=== PATIENT | male | born 1930 | race American Indian/Alaskan Native ===

== ENCOUNTER 2018-09-17 18:54 | Emergency (ER) | payer MEDICARE, OTHER ==
--- NOTE | 2018-09-17 19:23 | Cat Scan Report ---
PROCEDURE: CT HEAD/BRAIN WO CON TECHNIQUE: Computerized tomography of the head was performed without contrast material. HISTORY: neuro deficits <6hrs or sx present upon awakening COMPARISONS: None . FINDINGS: Low-attenuation in the subcortical and deep white matter of the cerebral hemispheres bilaterally most likely represents chronic postischemic demyelination/small vessel disease. However, a small focus of acute white matter ischemia cannot entirely be excluded. There are chronic infarcts in the basal ganglia bilaterally, left thalamus and left external capsule with decreased size of the left cerebral peduncle consistent with atrophy. There is no definite evidence of an acute intracranial process and no evidence of intracranial hemorr rafael or mass effect. Ventricular size is concordant with the degree of atrophy. The visualized portions of the orbits, paranasal and mastoid sinuses are notable for complete opacifi cation of the left frontal sinus and moderate to marked bilateral ethmoid sinus mucosal thickening. The bony structures are unremarkable. IMPRESSION: 1. No definite evidence of an acute intracranial process and no evidence of intracranial hemorrhage o r mass effect. 2. White matter changes that most likely represent chronic postischemic demyelination/small vessel di sease. However, a small focus of acute white matter ischemia cannot entirely be excluded. 3. Chronic infarcts basal ganglia bilaterally, left thalamus and left external capsule with atrophic change of the left cerebral peduncle. If there is a clinical suspicion of acute cerebral ischemia, MRI brain would be helpful. This document is electronically signed by Sandra Parmar MD., September 17 2018 07:21:10 PM ET
[2018-09-17 19:41] LABS: Basophils # (Auto) 0.1 K/mm3 (0.0-0.1); Basophils % (Auto) 0.6 % (0.0-1.8); Eosinophils # (Auto) 0.9 K/mm3 (0.0-0.4); Eosinophils % (Auto) 8.8 % (0.0-4.3); Hematocrit 43.4 % (35.5-45.6); Hemoglobin 14.2 gm/dl (11.8-15.2); Lymphocytes # (Auto) 1.4 K/mm3 (1.2-5.4); Lymphocytes % (Auto) 14.2 % (13.4-35.0); Mean Corpuscular HGB Conc 33 % (32-34); Mean Corpuscular Volume 88 fl (84-94); Monocytes # (Auto) 0.9 K/mm3 (0.0-0.8); Monocytes % (Auto) 8.7 % (0.0-7.3); Platelet Count 282 K/mm3 (140-440); Red Blood Count 4.93 M/mm3 (3.65-5.03); Red Cell Distribution Width 14.3 % (13.2-15.2)
[2018-09-17 19:52] LABS: INR 0.99 (0.87-1.13); Partial Thromboplastin Time 28.1 Sec. (24.2-36.6)
--- NOTE | 2018-09-17 19:58 | Consultation ---
History of Present Illness Consult date: 09/17/18 Reason for Consult: stroke alert Chief complaint: 88 yo male with h/o strokes in the past, most recent [id number] with residual right sided motor deficits and language deficits- today patient was found slumped over not breathing well and EMS was called; patient was less responsive than normal per ; EMS stated O2 sat was in the 80's upon arriving; isn't here for discussion; no blood thinners, unclear what type of strokes he has had, unclear if he had been sleeping prior to finding him, unclear the last few days of how he has been doing. PMH/SH/FH/ROS noted in EHR and reviewed Medications and Allergies Allergies Allergy/AdvReac Type Severity Reaction Status Date / Time No Known Allergies Allergy Verified 09/17/18 18:56 Home Medications Medication Instructions Recorded Confirmed Last Taken Type Unobtainable 09/17/18 09/17/18 Unknown History Physical Examination - Vital Signs Vital Signs: Vital Signs Temp Pulse Resp BP Pulse Ox 99.6 F 96 H 17 141/90 93 09/17/18 19:12 09/17/18 19:12 09/17/18 19:12 09/17/18 19:12 09/17/18 19:12 - Level of Consciousness 1a. Level of Consciousness: alert/keenly responsive - LOC Questions 1b. LOC Questions: answers no questions correctly - LOC Command 1c. LOC Commands: performs no tasks correctly - Best Gaze 2. Best Gaze: partial gaze palsy - Visual 3. Visual: no visual loss - Motor Arm 5a. Motor Arm Left: drift 5b. Motor Arm Right: no gravity effort - Motor Leg 6a. Motor Leg Left: some gravity effort 6b. Motor Leg Right: no gravity effort - Limb Ataxia 7. Limb Ataxia: absent - Sensory 8. Sensory: mild/moderate sensory loss - Best Language 9. Best Language: mute/global aphasia - Dysarthria 10. Dysarthria: mute/anarrthric - Extinction and Inattention 11. Extinction/Inattention: visual/tactile inattention (Patient with O2 sat 87% at this time, he at times seems to have gaze deviation to the left; no clear seizure movements; he eventually came around to talking to the ED doctor- able to tell her his name, age, and follow some commands) Results - Laboratory Findings CBC and BMP: 09/17/18 19:26 Abnormal Lab Findings: Abnormal Labs 09/17/18 09/17/18 19:16 19:26 Sampson % (Auto) 8.7 H Eos % (Auto) 8.8 H Sampson # 0.9 H Eos # 0.9 H POC Glucose 120 H - Diagnostic Findings Additional findings: CT head w/o bleed, evidence of left deep structure old stroke Assessment and Plan [facility] Impression: 1. r/o seizure vs new stroke vs metabolic/toxic/infectious cause of general decompensation 2. h/o strokes affecting right face/body and speech 3. reduced oxygen saturation Recommendations: - not a tPA candidate due to concern for LKN time, and unclear history - likely not an LVO given coming around now and talking to ED doctor- however discussed obtaining CTA H/N if Cr not abnormal; if it is would pursue MRI/MRA H/N w/o computer applications instructor and EEG on inpatient side - defer respiratory w/u to ED doc d/w ED doc in detail Gaby Johnson MD [facility] LKN: 1700 ts called 185 ts connected 1900 NIHSS 1907 door: [id number] date of service 09/17/18 Medical Decision Making: - Extensive number of diagnosis or management options are considered above. - Extensive amount of complex data reviewed. - High risk of complication and/or morbidity or mortality are associated with differential diagnostic considerations above. - There may be uncertain outcome and increased probability of prolonged functional impairment or high probability of severe prolonged functional impairment associated with some of these differential diagnosis. Medical Data Reviewed: 1.Data reviewed include clinical labs, radiology, Medical Tests; 2.Tests results discussed w/performing or interpreting physician; 3.Obtaining/reviewing old medical records; 4.Obtaining case history from another source; 5.Independent review of image, tracing or specimen. Patient was informed the [facility]rology Consult would happen [facility] by [facility] of interactive audio and video telecommunicationsand consented to receiving care in this manner.
[2018-09-17 20:02] LABS: BUN/Creatinine Ratio 11; Blood Urea Nitrogen 19 mg/dL (9-20); Calcium 9.1 mg/dL (8.4-10.2); Hemolysis Index 24
--- NOTE | 2018-09-17 20:13 | XRay Report ---
PROCEDURE: XR CHEST 1V AP TECHNIQUE: Chest radiograph single view. HISTORY: ams COMPARISONS: No priors FINDINGS: Cardiomediastinal silhouette within normal limits. Decreased inspiration. No airspace consolidation or pleural effusions. Pulmonary vasculature is within normal limits. IMPRESSION: Decreased inspiration. No radiographic evidence of acute disease. This document is electronically signed by Dillon Henson MD., September 17 2018 08:11:09 PM ET
[2018-09-17] MEDS ORDERED: NACL 0.9% 500 ML 500 ML IV ONE (20:42)
[2018-09-17 20:46] LABS: Bilirubin,Urine NEG (Negative); Blood,Urine SM (Negative); Color,Urine Yellow (Yellow); Hyaline Casts,Urine 1 /LPF; Mucus,Urine FEW /HPF; Protein,Urine <15 mg/dL mg/dL (Negative); RBC,Urine < 1.0 /HPF (0.0-6.0); Urobilinogen,Urine < 2.0 mg/dL (<2.0); WBC,Urine < 1.0 /HPF (0.0-6.0)
--- NOTE | 2018-09-17 22:12 | Emergency Department Report ---
ED Altered Mental Status HPI - General Chief Complaint: Altered Mental Status Stated Complaint: ALTERED MENTAL/CVA Time Seen by Provider: 09/17/18 19:10 Source: EMS Mode of arrival: Stretcher Limitations: Altered Mental Status, Physical Limitation - History of Present Illness Initial Comments: 88 yo male with history of CVA, hypertension, dementia, CKD, currently in hospice care, presents to ED with altered mental status. states she was in the kitchen, patient was in the other room when she heard the patient screaming out loud. states she ran into the room when the patient was and states that he was breathing heavily, and then his head drooped downward and he became unresponsive. EMS arrived to find patient is very lethargic, minimally responsive. Patient transported to ED. Patient arrived as a stroke alert and was seen by teleneurologist prior to my arrival in the room. Upon my arrival, patient is awake and alert. Patient was able to state his name and his birthday for me, answer questions, and follow commands. states this is the third time that this has happened. Recently moved from [place], [place]. Following the first 2 episodes, patient was transported to their local ER, workups were done and patient was discharged home. - Related Data Previous Rx's Medication Instructions Recorded Last Taken Type levETIRAcetam [Keppra TAB] 250 mg PO BID #60 tablet 09/17/18 Unknown Rx Allergies Allergy/AdvReac Type Severity Reaction Status Date / Time No Known Allergies Allergy Verified 09/17/18 18:56 ED Review of Systems ROS: Stated complaint: ALTERED MENTAL/CVA Other details as noted in HPI ED Past Medical Hx - Past Medical History Hx Hypertension: Yes Hx CVA: Yes - Surgical History Additional Surgical History: unable to assess - Social History Smoking Status: Unknown if ever smoked Substance Use Type: None - Medications Home Medications: Home Medications Medication Instructions Recorded Confirmed Last Taken Type levETIRAcetam [Keppra TAB] 250 mg PO BID #60 tablet 09/17/18 Unknown Rx ED Physical Exam - General Limitations: Altered Mental Status, Physical Limitation - Assessment Assessment Interval: Baseline - Level of Consciousness 1a. Level of Consciousness: alert/keenly responsive - LOC Questions 1b. LOC Questions: answers 1 question correctly - LOC Command 1c. LOC Commands: performs tasks correctly - Best Gaze 2. Best Gaze: normal - Visual 3. Visual: no visual loss - Facial Palsy 4. Facial Palsy: normal symmetrical movement - Motor Arm 5a. Motor Arm Left: no drift 5b. Motor Arm Right: no gravity effort - Motor Leg 6a. Motor Leg Left: some gravity effort 6b. Motor Leg Right: some gravity effort - Limb Ataxia 7. Limb Ataxia: absent - Sensory 8. Sensory: normal - Best Language 9. Best Language: no aphasia - Dysarthria 10. Dysarthria: normal - Extinction and Inattention 11. Extinction/Inattention: no abnormality - Scoring Total Score: 8 Stroke Severity: Moderate Stroke ED Course Vital Signs 09/17/18 09/17/18 09/17/18 19:07 19:12 19:15 Temperature 99.6 F Pulse Rate 98 H 96 H 92 H Respiratory 16 17 14 Rate Blood Pressure 126/86 Blood Pressure 141/90 [Left] O2 Sat by Pulse 93 95 Oximetry 09/17/18 09/17/18 09/17/18 19:30 19:45 20:01 Temperature Pulse Rate 85 87 80 Respiratory 15 15 15 Rate Blood Pressure 119/69 106/76 135/63 Blood Pressure [Left] O2 Sat by Pulse 94 98 99 Oximetry 09/17/18 09/17/18 09/17/18 20:15 20:30 20:45 Temperature Pulse Rate 77 73 71 Respiratory 15 14 14 Rate Blood Pressure 125/72 127/66 128/70 Blood Pressure [Left] O2 Sat by Pulse 99 100 98 Oximetry 09/17/18 09/17/18 09/17/18 21:00 21:15 21:31 Temperature Pulse Rate 71 80 72 Respiratory 14 17 13 Rate Blood Pressure 129/67 127/66 140/71 Blood Pressure [Left] O2 Sat by Pulse 100 Oximetry 09/17/18 09/17/18 09/17/18 21:45 22:01 22:02 Temperature Pulse Rate 69 72 Respiratory 14 14 Rate Blood Pressure 140/73 147/83 Blood Pressure [Left] O2 Sat by Pulse 99 Oximetry 09/17/18 09/17/18 09/17/18 22:15 22:30 22:45 Temperature Pulse Rate 71 Respiratory 14 14 14 Rate Blood Pressure 144/74 141/79 133/76 Blood Pressure [Left] O2 Sat by Pulse Oximetry - Lab Data Result diagrams: 09/17/18 19:26 09/17/18 19:26 Lab Results 09/17/18 09/17/1809/17/19 Range/Units 19:16 19:26 19:26 WBC 10.1 (4.5-11.0) K/mm3 RBC 4.93 (3.65-5.03) M/mm3 Hgb 14.2 (11.8-15.2) gm/dl Hct 43.4 (35.5-45.6) % MCV 88 (84-94) fl MCH 29 (28-32) pg MCHC 33 (32-34) % RDW 14.3 (13.2-15.2) % Plt Count 282 (140-440) K/mm3 Lymph % (Auto) 14.2 (13.4-35.0) % [place] % (Auto) 8.7 H (0.0-7.3) % Eos % (Auto) 8.8 H (0.0-4.3) % Baso % (Auto) 0.6 (0.0-1.8) % Lymph # 1.4 (1.2-5.4) K/mm3 [place] # 0.9 H (0.0-0.8) K/mm3 Eos # 0.9 H (0.0-0.4) K/mm3 Baso # 0.1 (0.0-0.1) K/mm3 Seg Neutrophils % 67.7 (40.0-70.0) % Seg Neutrophils # 6.9 (1.8-7.7) K/mm3 PT 13.7 (12.2-14.9) Sec. INR 0.99 (0.87-1.13) APTT 28.1 (24.2-36.6) Sec. Thrombin Time (15.1-19.6) Sec. Sodium (137-145) mmol/L Potassium (3.6-5.0) mmol/L Chloride (98-107) mmol/L Carbon Dioxide (22-30) mmol/L Anion Gap mmol/L BUN (9-20) mg/dL Creatinine (0.8-1.5) mg/dL Estimated GFR ml/min BUN/Creatinine Ratio % Glucose (75-100) mg/dL POC Glucose 120 H (70-105) Calcium (8.4-10.2) mg/dL Troponin T (0.00-0.029) ng/mL Urine Color (Yellow) Urine Turbidity (Clear) Urine pH (5.0-7.0) Ur Specific [place] (1.003-1.030) Urine Protein (Negative) mg/dL Urine Glucose (UA) (Negative) mg/dL Urine Ketones (Negative) mg/dL Urine Blood (Negative) Urine Nitrite (Negative) Urine Bilirubin (Negative) Urine Urobilinogen (<2.0) mg/dL Ur Leukocyte Esterase (Negative) Urine WBC (Auto) (0.0-6.0) /HPF Urine RBC (Auto) (0.0-6.0) /HPF Hyaline Casts /LPF Urine Mucus /HPF 09/17/18 09/17/18 09/17/18 Range/Units 19:26 19:26 19:52 WBC (4.5-11.0) K/mm3 RBC (3.65-5.03) M/mm3 Hgb (11.8-15.2) gm/dl Hct (35.5-45.6) % MCV (84-94) fl MCH (28-32) pg MCHC (32-34) % RDW (13.2-15.2) % Plt Count (140-440) K/mm3 Lymph % (Auto) (13.4-35.0) % [place] % (Auto) (0.0-7.3) % Eos % (Auto) (0.0-4.3) % Baso % (Auto) (0.0-1.8) % Lymph # (1.2-5.4) K/mm3 [place] # (0.0-0.8) K/mm3 Eos # (0.0-0.4) K/mm3 Baso # (0.0-0.1) K/mm3 Seg Neutrophils % (40.0-70.0) % Seg Neutrophils # (1.8-7.7) K/mm3 PT (12.2-14.9) Sec. INR (0.87-1.13) APTT (24.2-36.6) Sec. Thrombin Time 19.6 (15.1-19.6) Sec. Sodium 142 (137-145) mmol/L Potassium 4.7 (3.6-5.0) mmol/L Chloride 105.1 (98-107) mmol/L Carbon Dioxide 25 (22-30) mmol/L Anion Gap 17 mmol/L BUN 19 (9-20) mg/dL Creatinine 1.8 H (0.8-1.5) mg/dL Estimated GFR 44 ml/min BUN/Creatinine Ratio 11 % Glucose 121 H (75-100) mg/dL POC Glucose (70-105) Calcium 9.1 (8.4-10.2) mg/dL Troponin T < 0.010 (0.00-0.029) ng/mL Urine Color Yellow (Yellow) Urine Turbidity Slightly-cloudy (Clear) Urine pH 5.0 (5.0-7.0) Ur Specific [place] 1.016 (1.003-1.030) Urine Protein <15 mg/dl (Negative) mg/dL Urine Glucose (UA) Neg (Negative) mg/dL Urine Ketones Neg (Negative) mg/dL Urine Blood Sm (Negative) Urine Nitrite Neg (Negative) Urine Bilirubin Neg (Negative) Urine Urobilinogen < 2.0 (<2.0) mg/dL Ur Leukocyte Esterase Neg (Negative) Urine WBC (Auto) < 1.0 (0.0-6.0) /HPF Urine RBC (Auto) < 1.0 (0.0-6.0) /HPF Hyaline Casts 1 /LPF Urine Mucus Few /HPF - EKG Data -: EKG Interpreted by Md EKG shows normal: sinus rhythm, axis, intervals, QRS complexes, ST-T waves Rate: normal Interpretation: no acute changes, other (old inferior infarct) - Radiology Data Radiology results: report reviewed, image reviewed - Medical Decision Making and granddaughter at bedside. Reports this is 3rd occurrence of this type of episode. Sounds like possible seizure, given pt's hx of CVA in the past. states pt has been to the ER previously but never prescribed seizure medication. Pt was likely initially post-ictal but has since improved his mental status. EMS reported that he was also hypoxic during that time, however, O2 sats normal on room air. CT Head, CXR negative for any acute disease. Labs unremarkable. Pt is currently in hospice care. Spoke with family and they are comfortable with taking the pt home and initiating Keppra since this is not the first time that this has happened, and since he is back to his baseline. Keppra bolus given here in ED. Pt given rx for Keppra 250 BID given his CKD. Advised neurology f/u. Return precautions given. - Differential Diagnosis seizure, CVA, infection Critical care attestation.: If time is entered above; I have spent that time in minutes in the direct care of this critically ill patient, excluding procedure time. ED Disposition Clinical Impression: Seizure Disposition: DC-01 TO HOME OR SELFCARE Is pt being admited?: No Condition: Stable Instructions: Recurrent Seizures Adult (ED) Prescriptions: levETIRAcetam [Keppra TAB] 250 mg PO BID #60 tablet Referrals: AUGUSTO PASCUAL MD [Referring] - 3-5 Days PRIMARY CARE, [Referring] - 3-5 Days Time of Disposition: 22:40
[2018-09-17] MEDS ORDERED: KEPPRA 500 MG in NACL 0.9% 100 ML IV ONE (22:14)
[2018-09-17 22:58] VITALS: BP 133/76
== END 2018-09-17 23:52 | disposition home or self-care (01) ==
LOC: ED 18:54
DX: R56.9 Unspecified convulsions (principal); R41.82 Altered mental status, unspecified; I12.9 Hypertensive chronic kidney disease with stage 1 through stage 4 chronic kidney disease, or unspecified chronic kidney disease; N18.9 Chronic kidney disease, unspecified; Z87.820 Personal history of traumatic brain injury
CPT/HCPCS: 36415; 70450; 71045; 80048; 81001; 82962; 84484; 85025; 85610; 85670; 85730; 93005; 93010; 96365; 99285; J1953; J7040

== ENCOUNTER 2019-05-21 22:22 | Inpatient (IN) | payer MEDICARE ==
[2019-05-21] MEDS ORDERED: CEFEPIME/NS 2 GM/100 ML 2 GM/100 ML BAG IV ONE (22:54)
--- NOTE | 2019-05-21 23:05 | Emergency Department Report ---
ED General Adult HPI - General Stated complaint: SEPSIS Time Seen by Provider: 05/21/19 22:50 Source: family Mode of arrival: Stretcher Limitations: Altered Mental Status, Physical Limitation - History of Present Illness Initial comments: Patient is an 88-year-old male patient presents emergency room for fever and cough. Patient has a history of dementia and has increased confusion. Family at bedside. History per family. Family states that the patient has a rash on his back and buttocks. Family states that the patient has been itching his buttocks a lot and causing it to bleed. Family states he is having a lot of dry skin on his back and buttock region. Family states the patient has had a dry cough and a fever for 2 days. Patient lives at home. Patient got a flu shot this year. Patient is up-to-date on his pneumonia vaccines. Patient has a history of dementia. -: Sudden Consistency: constant Improves with: none Worsens with: none Associated Symptoms: confusion, cough, fever/chills Treatments Prior to Arrival: none - Related Data Home Medications Medication Instructions Recorded Confirmed Last Taken Aspirin 325 mg PO ONCE 05/22/19 05/22/19 Unknown Doxepin [SINEquan] 10 mg PO QHS 05/22/19 05/22/19 Unknown Loratadine 10 mg PO DAILY 05/22/19 05/22/19 Unknown Sennosides/Docusate [Senokot S] 2 each PO QHS 05/22/19 05/22/19 Unknown amLODIPine [Norvasc] 5 mg PO DAILY 05/22/19 05/22/19 Unknown hydrOXYzine HCL [Atarax] 25 mg PO TID 05/22/19 05/22/19 Unknown lisinopriL [Zestril] 20 mg PO QDAY 05/22/19 05/22/19 Unknown Previous Rx's Medication Instructions Recorded Last Taken Type levETIRAcetam [Keppra TAB] 250 mg PO BID #60 tablet 09/17/18 Unknown Rx Allergies Allergy/AdvReac Type Severity Reaction Status Date / Time No Known Allergies Allergy Verified 09/17/18 18:56 ED Review of Systems ROS: Stated complaint: SEPSIS Other details as noted in HPI Comment: Unobtainable due to pts medical conditions Constitutional: fever Respiratory: cough Skin: rash, lesions ED Past Medical Hx - Past Medical History Previous Medical History?: Yes Hx Hypertension: Yes Hx CVA: Yes Hx Liver Disease: No Hx Renal Disease: No - Surgical History Past Surgical History?: No Additional Surgical History: unable to assess - Family History Family history: no significant - Social History Smoking Status: Unknown if ever smoked Substance Use Type: None - Medications Home Medications: Home Medications Medication Instructions Recorded Confirmed Last Taken Type levETIRAcetam [Keppra TAB] 250 mg PO BID #60 tablet 09/17/18 05/22/19 Unknown Rx Aspirin 325 mg PO ONCE 05/22/19 05/22/19 Unknown History Doxepin [SINEquan] 10 mg PO QHS 05/22/19 05/22/19 Unknown History Loratadine 10 mg PO DAILY 05/22/19 05/22/19 Unknown History Sennosides/Docusate [Senokot S] 2 each PO QHS 05/22/19 05/22/19 Unknown History amLODIPine [Norvasc] 5 mg PO DAILY 05/22/19 05/22/19 Unknown History hydrOXYzine HCL [Atarax] 25 mg PO TID 05/22/19 05/22/19 Unknown History lisinopriL [Zestril] 20 mg PO QDAY 05/22/19 05/22/19 Unknown History ED Physical Exam - General Limitations: Altered Mental Status, Physical Limitation General appearance: alert, in no apparent distress - Head Head exam: Present: atraumatic, normocephalic - Eye Eye exam: Present: normal appearance, PERRL Pupils: Present: normal accommodation - ENT ENT exam: Present: mucous membranes moist - Neck Neck exam: Present: normal inspection - Respiratory Respiratory exam: Present: normal lung sounds bilaterally. Absent: respiratory distress, wheezes, rales - Cardiovascular Cardiovascular Exam: Present: regular rate, normal rhythm. Absent: systolic murmur, diastolic murmur, rubs, gallop - GI/Abdominal GI/Abdominal exam: Present: soft, normal bowel sounds. Absent: distended, tenderness, guarding - Rectal Rectal exam: Present: deferred - Extremities Exam Extremities exam: Present: normal inspection - Back Exam Back exam: Present: normal inspection - Neurological Exam Neurological exam: Present: alert, altered - Skin Skin exam: Present: warm, dry, normal color, rash, erythema (larger cellulitis noted to the right buttock. Excoriation noted to the perineum and buttock.) ED Course Vital Signs 05/21/19 05/21/19 05/21/19 22:45 22:55 22:58 Temperature 102.8 F H Pulse Rate 108 H 107 H Respiratory 18 18 18 Rate Blood Pressure 131/67 131/67 O2 Sat by Pulse 99 99 Oximetry 05/21/19 05/21/19 05/21/19 23:00 23:15 23:30 Temperature Pulse Rate 108 H 108 H 104 H Respiratory 21 18 15 Rate Blood Pressure 125/79 130/74 120/68 O2 Sat by Pulse 97 96 98 Oximetry 05/21/19 05/22/19 05/22/19 23:45 00:00 00:15 Temperature Pulse Rate 103 H 105 H 110 H Respiratory 17 15 17 Rate Blood Pressure 126/67 139/73 148/70 O2 Sat by Pulse 96 96 96 Oximetry 05/22/19 05/22/19 05/22/19 00:30 00:45 01:00 Temperature Pulse Rate 105 H 106 H Respiratory 22 20 16 Rate Blood Pressure 140/75 142/67 134/77 O2 Sat by Pulse 94 90 Oximetry 05/22/19 05/22/19 05/22/19 01:15 01:31 01:45 Temperature Pulse Rate 101 H 96 H Respiratory 18 18 19 Rate Blood Pressure 126/72 121/77 132/67 O2 Sat by Pulse 96 98 99 Oximetry 05/22/19 05/22/19 05/22/19 02:00 02:15 02:30 Temperature Pulse Rate Respiratory 22 19 17 Rate Blood Pressure 130/70 132/75 138/79 O2 Sat by Pulse 98 97 90 Oximetry 05/22/19 05/22/19 05/22/19 02:45 03:00 03:15 Temperature Pulse Rate Respiratory 20 11 L 18 Rate Blood Pressure 122/72 126/70 126/57 O2 Sat by Pulse 94 97 98 Oximetry 05/22/19 05/22/19 05/22/19 03:31 03:45 04:00 Temperature Pulse Rate Respiratory 16 19 19 Rate Blood Pressure 131/73 120/72 125/70 O2 Sat by Pulse 93 96 97 Oximetry 05/22/19 05/22/19 05/22/19 04:10 04:11 04:21 Temperature 98.7 F Pulse Rate 91 H Respiratory 15 19 Rate Blood Pressure 125/70 129/74 O2 Sat by Pulse 96 95 Oximetry - Reevaluation(s) Reevaluation #1: Initial evaluation done. Code sepsis called by the nurse. Patient is tachycardic and febrile. Noted to have cellulitis of the right buttock as well as larger excoriation to the Karen-area. Patient's blood pressure is normal. Patient will be given fluids and a sepsis protocol will be done. 05/21/19 22:50 Reevaluation #2: Patient's heart rate is improving. Patient's blood pressure stable. 05/21/19 23:39 Reevaluation #3: pt more talkative. Patient our rate is improving. Patient had a [place] placed. 05/22/19 00:16 Reevaluation #4: I discussed all results with patient and family. I discussed plan of care with patient and family. Patient will be admitted to the hospitalist service. Patient and family agreed with plan of care. 05/22/19 00:36 - Consultations Consultation #1: Hospitalist consult for admission. Hospitalist to admit patient. Bridge orders place. 05/22/19 00:36 ED Medical Decision Making - Lab Data Result diagrams: 05/21/19 22:56 05/21/19 22:56 - EKG Data -: EKG Interpreted by Me EKG shows normal: sinus rhythm, axis, intervals, QRS complexes, ST-T waves Rate: tachycardia - Radiology Data Radiology results: report reviewed, image reviewed interpreted by me: No acute findings on chest x-ray - Medical Decision Making pt is an 88-year-old male who presents emergency room with complaints of fever and cough. Patient also found to have a rash and irritation to his buttocks and perineal area. On initial evaluation patient found to be tachycardic and febrile, code sepsis initiated immediately and patient given fluids and antibiotics immediately. Patient source of infection found to be a right buttock cellulitis and a UTI. Patient's chest x-ray negative. Patient's labs are remarkable for acute renal failure, and elevated WBC. Patient admitted to the hospitalist service. Patient's heart rate improved with treatment. - Differential Diagnosis fever. sepsis, cough, uti. cellulitis Critical Care Time: Yes Critical care time in (mins) excluding proc time.: 45 Critical care attestation.: If time is entered above; I have spent that time in minutes in the direct care of this critically ill patient, excluding procedure time. Critical Care Time: 45 minutes ED Disposition Clinical Impression: Sepsis Qualifiers: Sepsis type: sepsis due to unspecified organism Sepsis acute organ dysfunction status: with acute organ dysfunction Severe sepsis acute organ dysfunction type: acute renal failure Acute renal failure type: unspecified Severe sepsis shock status: without septic shock Qualified Code(s): A41.9 - Sepsis, unspecified organism Cellulitis Qualifiers: Site of cellulitis: buttock Qualified Code(s): L03.317 - Cellulitis of buttock UTI (urinary tract infection) Qualifiers: Urinary tract infection type: acute cystitis Hematuria presence: with hematuria Qualified Code(s): N30.01 - Acute cystitis with hematuria Fever Qualifiers: Fever type: unspecified Qualified Code(s): R50.9 - Fever, unspecified Renal failure Qualifiers: Renal failure chronicity: acute Acute renal failure type: unspecified Qualified Code(s): N17.9 - Acute kidney failure, unspecified Disposition: DC09 OP ADMIT IP TO THIS HOSP Is pt being admited?: Yes Does the pt Need Aspirin: No Condition: Critical Time of Disposition: 00:16
[2019-05-21] MEDS ORDERED: SODIUM CHLORIDE 0.9% 1000 ML IV SOLN IV ONE (23:07)
--- NOTE | 2019-05-21 23:07 | XRay Report ---
CHEST 1 VIEW INDICATION / CLINICAL INFORMATION: fever. cough. COMPARISON: 09/17/2018 FINDINGS: SUPPORT DEVICES: None. HEART / MEDIASTINUM: No significant abnormality. LUNGS / PLEURA: No significant pulmonary or pleural abnormality. No pneumothorax. ADDITIONAL FINDINGS: No significant additional findings. IMPRESSION: 1. No acute findings. Signer Name: Tim Gamez MD Signed: 05/21/2019 11:03 PM Workstation Name: [id number]
[2019-05-21] MEDS ORDERED: VANCOMYCIN/NS 1 GM/250 ML 1 GM/250 ML BAG IV ONE (23:08)
[2019-05-21 23:28] LABS: Basophils # (Auto) 0.2 K/mm3 (0.0-0.1); Basophils % (Auto) 1.1 % (0.0-1.8); Eosinophils # (Auto) 1.5 K/mm3 (0.0-0.4); Eosinophils % (Auto) 9.2 % (0.0-4.3); Hematocrit 33.9 % (35.5-45.6); Hemoglobin 11.2 gm/dl (11.8-15.2); Lymphocytes # (Auto) 1.1 K/mm3 (1.2-5.4); Lymphocytes % (Auto) 6.8 % (13.4-35.0); Mean Corpuscular HGB Conc 33 % (32-34); Mean Corpuscular Volume 88 fl (84-94); Monocytes # (Auto) 1.8 K/mm3 (0.0-0.8); Monocytes % (Auto) 10.9 % (0.0-7.3); Platelet Count 618 K/mm3 (140-440); Red Blood Count 3.87 M/mm3 (3.65-5.03); Red Cell Distribution Width 13.9 % (13.2-15.2)
[2019-05-21] MEDS ORDERED: VANCOMYCIN 2,000 MG in SODIUM CHLORIDE 0.9% 500 ML 500 ML IV ONE (23:30)
[2019-05-21 23:52] LABS: Albumin 2.4 g/dL (3.9-5); Calcium 8.4 mg/dL (8.4-10.2)
[2019-05-21 23:52] LABS: Bacteria,Urine 1+ /HPF (Negative); Bilirubin,Urine NEG (Negative); Blood,Urine SM (Negative); Color,Urine Yellow (Yellow); Hyaline Casts,Urine 1 /LPF; Mucus,Urine FEW /HPF; Protein,Urine <15 mg/dL mg/dL (Negative); Urobilinogen,Urine < 2.0 mg/dL (<2.0)
[2019-05-22] MEDS ORDERED: ONDANSETRON 4 MG/2 ML INJ IV PRN (00:43)
--- NOTE | 2019-05-22 00:43 | History and Physical Report ---
History of Present Illness Date of examination: 05/22/19 Date of admission: 05/22/19 Chief complaint: " Increased confusion" History of present illness: Patient is a 88-year-old male with a past medical history of dementia, CVA, CKD and , hypertension who presents to ER with complaints of increased confusion. Per EMS, patient had skin wounds to buttocks, cough and fever x3 days. Upon arrival code sepsis was activated, on assessment patient is pleasantly confused, easily aroused and appears in no distress. Past History Past Medical History: other (As noted in HPI) Past Surgical History: Other (Unable to obtain) Social history: other (Unable to obtain) Family history: other (Unable to obtain) Medications and Allergies Allergies Allergy/AdvReac Type Severity Reaction Status Date / Time No Known Allergies Allergy Verified 09/17/18 18:56 Home Medications Medication Instructions Recorded Confirmed Last Taken Type levETIRAcetam [Keppra TAB] 250 mg PO BID #60 tablet 09/17/18 05/22/19 Unknown Rx Aspirin 325 mg PO ONCE 05/22/19 05/22/19 Unknown History Doxepin [SINEquan] 10 mg PO QHS 05/22/19 05/22/19 Unknown History Loratadine 10 mg PO DAILY 05/22/19 05/22/19 Unknown History Sennosides/Docusate [Senokot S] 2 each PO QHS 05/22/19 05/22/19 Unknown History amLODIPine [Norvasc] 5 mg PO DAILY 05/22/19 05/22/19 Unknown History hydrOXYzine HCL [Atarax] 25 mg PO TID 05/22/19 05/22/19 Unknown History lisinopriL [Zestril] 20 mg PO QDAY 05/22/19 05/22/19 Unknown History Active Meds: Active Medications Vancomycin HCl 2,000 mg/ (Sodium Chloride) 540 mls @ 250 mls/hr IV ONCE ONE Stop: 05/22/19 01:39 Last Admin: 05/22/19 00:24 Dose: 250 mls/hr Documented by: Review of Systems ROS unobtainable: due to mental status Constitutional: fever Exam - Physical Exam Narrative exam: - Physical Exam Narrative exam: General appearance: Present: No distress noted - EENT Eyes: Present: PERRL ENT: hearing intact, clear oral mucosa - Neck Neck: Present: supple, normal ROM - Respiratory Respiratory effort: normal Respiratory: bilateral: Clear to auscultation - Cardiovascular Heart Sounds: Present: S1 & S2. Absent: rub, click - Extremities Extremities: pulses symmetrical, No edema Peripheral Pulses: within normal limits - Abdominal General gastrointestinal: Present: , non-distended, normal bowel sounds genitourinary: Present: normal - Integumentary Integumentary: Present: large cellulitis noted to the right buttock - Musculoskeletal Musculoskeletal: gait normal, strength equal bilaterally - Psychiatric Psychiatric: appropriate mood/affect - Neurologic Neurologic:, moves all extremities - Constitutional Vitals: Temp Pulse Resp BP Pulse Ox 102.8 F H 108 H 18 131/67 99 05/21/19 22:55 05/21/19 22:45 05/21/19 22:45 05/21/19 22:45 05/21/19 22:45 Results - Labs CBC & Chem 7: 05/21/19 22:56 05/21/19 22:56 Labs: Laboratory Last Values WBC 16.1 K/mm3 (4.5-11.0) H 05/21/19 22:56 RBC 3.87 M/mm3 (3.65-5.03) 05/21/19 22:56 Hgb 11.2 gm/dl (11.8-15.2) L 05/21/19 22:56 Hct 33.9 % (35.5-45.6) L 05/21/19 22:56 MCV 88 fl (84-94) 05/21/19 22:56 MCH 29 pg (28-32) 05/21/19 22:56 MCHC 33 % (32-34) 05/21/19 22:56 RDW 13.9 % (13.2-15.2) 05/21/19 22:56 Plt Count 618 K/mm3 (140-440) H 05/21/19 22:56 Lymph % (Auto) 6.8 % (13.4-35.0) L 05/21/19 22:56 [place] % (Auto) 10.9 % (0.0-7.3) H 05/21/19 22:56 Eos % (Auto) 9.2 % (0.0-4.3) H 05/21/19 22:56 Baso % (Auto) 1.1 % (0.0-1.8) 05/21/19 22:56 Lymph # 1.1 K/mm3 (1.2-5.4) L 05/21/19 22:56 [place] # 1.8 K/mm3 (0.0-0.8) H 05/21/19 22:56 Eos # 1.5 K/mm3 (0.0-0.4) H 05/21/19 22:56 Baso # 0.2 K/mm3 (0.0-0.1) H 05/21/19 22:56 Seg Neutrophils % 72.0 % (40.0-70.0) H 05/21/19 22:56 Seg Neutrophils # 11.6 K/mm3 (1.8-7.7) H 05/21/19 22:56 Sodium 147 mmol/L (137-145) H 05/21/19 22:56 Potassium 4.2 mmol/L (3.6-5.0) 05/21/19 22:56 Chloride 114.9 mmol/L (98-107) H 05/21/19 22:56 Carbon Dioxide 20 mmol/L (22-30) L 05/21/19 22:56 Anion Gap 16 mmol/L 05/21/19 22:56 BUN 20 mg/dL (9-20) 05/21/19 22:56 Creatinine 2.6 mg/dL (0.8-1.5) H 05/21/19 22:56 Estimated GFR 28 ml/min 05/21/19 22:56 BUN/Creatinine Ratio 8 % 05/21/19 22:56 Glucose 110 mg/dL (75-100) H 05/21/19 22:56 Lactic Acid 1.10 mmol/L (0.7-2.0) 05/21/19 22:56 Calcium 8.4 mg/dL (8.4-10.2) 05/21/19 22:56 Total Bilirubin 0.20 mg/dL (0.1-1.2) 05/21/19 22:56 AST 15 units/L (5-40) 05/21/19 22:56 ALT 7 units/L (7-56) 05/21/19 22:56 Alkaline Phosphatase 69 units/L (35-129) 05/21/19 22:56 Troponin T 0.021 ng/mL (0.00-0.029) 05/21/19 22:56 Total Protein 6.9 g/dL (6.3-8.2) 05/21/19 22:56 Albumin 2.4 g/dL (3.9-5) L 05/21/19 22:56 Albumin/Globulin Ratio 0.5 % 05/21/19 22:56 Urine Color Yellow (Yellow) 05/21/19 Unknown Urine Turbidity Slightly-cloudy (Clear) 05/21/19 Unknown Urine pH 5.0 (5.0-7.0) 05/21/19 Unknown Ur Specific [place] 1.013 (1.003-1.030) 05/21/19 Unknown Urine Protein <15 mg/dl mg/dL (Negative) 05/21/19 Unknown Urine Glucose (UA) Neg mg/dL (Negative) 05/21/19 Unknown Urine Ketones Neg mg/dL (Negative) 05/21/19 Unknown Urine Blood Sm (Negative) 05/21/19 Unknown Urine Nitrite Neg (Negative) 05/21/19 Unknown Urine Bilirubin Neg (Negative) 05/21/19 Unknown Urine Urobilinogen < 2.0 mg/dL (<2.0) 05/21/19 Unknown Ur Leukocyte Esterase Sm (Negative) 05/21/19 Unknown Urine WBC (Auto) 19.0 /HPF (0.0-6.0) H 05/21/19 Unknown Urine RBC (Auto) 4.0 /HPF (0.0-6.0) 05/21/19 Unknown U Epithel Cells (Auto) < 1.0 /HPF (0-13.0) 05/21/19 Unknown Urine Bacteria (Auto) 1+ /HPF (Negative) 05/21/19 Unknown Hyaline Casts 1 /LPF 05/21/19 Unknown Urine Mucus Few /HPF 05/21/19 Unknown - Imaging and Cardiology EKG: report reviewed (Sinus tach) Assessment and Plan Assessment and plan: Patient seen in conjunction with Dr. Buchanan, who agrees with plan of care. Acute metabolic encephalopathy -Multifactorial, sepsis, UTI, cellulitis -Blood cultures pending -neuro checks -Continue supportive care Sepsis -Leukocytosis 16.1 -Tachycardic with heart rate 105 bpm -On IV Abx -Cultures pending -Continue supportive care CKD -Avoid nephrotoxic agents -Renal dose all meds -strict I/O, -monitor uop q shift, Acute cystitis -IV antibiotics continued -Culture pending -IV fluids Dementia -Reorient as needed -Supportive care -Continue home meds once reconciled Cellulitis -site, buttock -Wound care consult -On IV ABX DVT prophylaxis -SCDs bilateral extremities -Heparin subcu Advance Directives: No VTE prophylaxis?: Chemical
[2019-05-22] MEDS ORDERED: SODIUM CHLORIDE 0.9% 1000 ML 1,000 ML IV SCH (04:30)
[2019-05-22] MEDS: SODIUM CHLORIDE 0.9% 1000 ML 1,000 ML IV SCH ×2 (04:53→20:40)
[2019-05-22] MEDS: CEFEPIME/NS 2 GM/100 ML 2 GM/100 ML BAG IV SCH (09:19)
[2019-05-22] MEDS: HEPARIN 5,000 UNIT/1 ML VIAL SUB-Q SCH ×2 (09:28→21:11)
--- NOTE | 2019-05-22 12:10 | Progress Note ---
Assessment and Plan Assessment and plan: Toxic metabolic encephalopathy -Multifactorial, sepsis, UTI, cellulitis -Blood cultures pending -neuro checks -Continue supportive care Sepsis -Leukocytosis 16.1 -Tachycardic with heart rate 105 bpm -Continue IV Abx -Cultures pending -Continue supportive care CKD -Avoid nephrotoxic agents -Renal dose all meds -strict I/O, -monitor uop q shift, Acute cystitis -IV antibiotics continued -Culture pending -IV fluids Dementia -Reorient as needed -Supportive care -Continue home meds once reconciled Cellulitis -site, buttock -Wound care consult -On IV ABX DVT prophylaxis -SCDs bilateral extremities -Heparin subcu History Interval history: No new issues overnight. Hospitalist Physical - Constitutional Vitals: Temp Pulse Resp BP Pulse Ox 98.5 F 89 18 131/65 95 05/22/19 07:24 05/22/19 07:24 05/22/19 07:24 05/22/19 07:24 05/22/19 07:24 General appearance: Present: no acute distress, well-nourished - EENT Eyes: Present: PERRL, EOM intact ENT: hearing intact, clear oral mucosa, dentition normal - Neck Neck: Present: supple, normal ROM - Respiratory Respiratory effort: normal Respiratory: bilateral: CTA - Cardiovascular Rhythm: regular Heart Sounds: Present: S1 & S2. Absent: gallop, rub - Extremities Extremities: no ischemia, No edema, Full ROM - Abdominal General gastrointestinal: soft, non-tender, non-distended, normal bowel sounds - Integumentary Integumentary: Present: clear, warm, dry - Neurologic Neurologic: CNII-XII intact, moves all extremities Results - Labs CBC & Chem 7: 05/21/19 22:56 05/21/19 22:56 Labs: Laboratory Last Values WBC 16.1 K/mm3 (4.5-11.0) H 05/21/19 22:56 RBC 3.87 M/mm3 (3.65-5.03) 05/21/19 22:56 Hgb 11.2 gm/dl (11.8-15.2) L 05/21/19 22:56 Hct 33.9 % (35.5-45.6) L 05/21/19 22:56 MCV 88 fl (84-94) 05/21/19 22:56 MCH 29 pg (28-32) 05/21/19 22:56 MCHC 33 % (32-34) 05/21/19 22:56 RDW 13.9 % (13.2-15.2) 05/21/19 22:56 Plt Count 618 K/mm3 (140-440) H 05/21/19 22:56 Lymph % (Auto) 6.8 % (13.4-35.0) L 05/21/19 22:56 [place] % (Auto) 10.9 % (0.0-7.3) H 05/21/19 22:56 Eos % (Auto) 9.2 % (0.0-4.3) H 05/21/19 22:56 Baso % (Auto) 1.1 % (0.0-1.8) 05/21/19 22:56 Lymph # 1.1 K/mm3 (1.2-5.4) L 05/21/19 22:56 [place] # 1.8 K/mm3 (0.0-0.8) H 05/21/19 22:56 Eos # 1.5 K/mm3 (0.0-0.4) H 05/21/19 22:56 Baso # 0.2 K/mm3 (0.0-0.1) H 05/21/19 22:56 Seg Neutrophils % 72.0 % (40.0-70.0) H 05/21/19 22:56 Seg Neutrophils # 11.6 K/mm3 (1.8-7.7) H 05/21/19 22:56 Sodium 147 mmol/L (137-145) H 05/21/19 22:56 Potassium 4.2 mmol/L (3.6-5.0) 05/21/19 22:56 Chloride 114.9 mmol/L (98-107) H 05/21/19 22:56 Carbon Dioxide 20 mmol/L (22-30) L 05/21/19 22:56 Anion Gap 16 mmol/L 05/21/19 22:56 BUN 20 mg/dL (9-20) 05/21/19 22:56 Creatinine 2.6 mg/dL (0.8-1.5) H 05/21/19 22:56 Estimated GFR 28 ml/min 05/21/19 22:56 BUN/Creatinine Ratio 8 % 02/07/20 22:56 Glucose 110 mg/dL (75-100) H 05/21/19 22:56 Lactic Acid 1.20 mmol/L (0.7-2.0) 05/22/19 09:24 Calcium 8.4 mg/dL (8.4-10.2) 05/21/19 22:56 Total Bilirubin 0.20 mg/dL (0.1-1.2) 05/21/19 22:56 AST 15 units/L (5-40) 05/21/19 22:56 ALT 7 units/L (7-56) 05/21/19 22:56 Alkaline Phosphatase 69 units/L (35-129) 05/21/19 22:56 Troponin T 0.021 ng/mL (0.00-0.029) 05/21/19 22:56 Total Protein 6.9 g/dL (6.3-8.2) 05/21/19 22:56 Albumin 2.4 g/dL (3.9-5) L 05/21/19 22:56 Albumin/Globulin Ratio 0.5 % 05/21/19 22:56 Urine Color Yellow (Yellow) 05/21/19 Unknown Urine Turbidity Slightly-cloudy (Clear) 05/21/19 Unknown Urine pH 5.0 (5.0-7.0) 05/21/19 Unknown Ur Specific [place] 1.013 (1.003-1.030) 05/21/19 Unknown Urine Protein <15 mg/dl mg/dL (Negative) 05/21/19 Unknown Urine Glucose (UA) Neg mg/dL (Negative) 05/21/19 Unknown Urine Ketones Neg mg/dL (Negative) 05/21/19 Unknown Urine Blood Sm (Negative) 05/21/19 Unknown Urine Nitrite Neg (Negative) 05/21/19 Unknown Urine Bilirubin Neg (Negative) 05/21/19 Unknown Urine Urobilinogen < 2.0 mg/dL (<2.0) 05/21/19 Unknown Ur Leukocyte Esterase Sm (Negative) 05/21/19 Unknown Urine WBC (Auto) 19.0 /HPF (0.0-6.0) H 05/21/19 Unknown Urine RBC (Auto) 4.0 /HPF (0.0-6.0) 05/21/19 Unknown U Epithel Cells (Auto) < 1.0 /HPF (0-13.0) 05/21/19 Unknown Urine Bacteria (Auto) 1+ /HPF (Negative) 05/21/19 Unknown Hyaline Casts 1 /LPF 05/21/19 Unknown Urine Mucus Few /HPF 05/21/19 Unknown Blood Type O POSITIVE 05/22/19 02:30 Antibody Screen Negative 05/22/19 02:30 Active Medications - Current Medications Current Medications: Generic Name Dose Route Start Last Admin Trade Name Freq PRN Reason Stop Dose Admin Acetaminophen 650 mg 05/22/19 00:43 Tylenol PO Q4H PRN Pain MILD(1-3)/Fever >100.5/FERNANDES Heparin Sodium (Porcine) 5,000 unit 05/22/19 10:00 05/22/19 09:28 Heparin SUB-Q 5,000 unit Q12HR LILI Administration Cefepime HCl 2 gm in 100 mls @ 200 mls/hr 05/22/19 10:00 05/22/19 09:19 Cefepime/Ns 2 Gm/100 Ml IV 200 mls/hr Q24HR LILI Administration Protocol Sodium Chloride 1,000 mls @ 75 mls/hr 05/22/19 04:30 05/22/19 04:53 Nacl 0.9% 1000 Ml IV 75 mls/hr DIRECT LILI Administration Ondansetron HCl 4 mg 05/22/19 00:43 Zofran IV Q8H PRN Nausea And Vomiting Sodium Chloride 10 ml 05/22/19 10:00 05/22/19 09:26 Sodium Chloride Flush Syringe 10 Ml IV 10 ml BID LILI Administration Sodium Chloride 10 ml 05/22/19 00:43 Sodium Chloride Flush Syringe 10 Ml IV PRN PRN LINE FLUSH Nutrition/Malnutrition Assess - Dietary Evaluation Nutrition/Malnutrition Findings: Nutrition Notes Start: 05/22/19 11:12 Freq: Status: Active Protocol: Document 05/22/19 11:12 CT (Rec: 05/22/19 11:19 CT [id number]) Co-Sign 05/22/19 11:12 LP Nutrition Notes 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 Pt stated his UBW is 145 lbs and has not noticed any wt loss. 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 Pt stated he has a good appetite and has not had any N/V. Noted slight orbital wasting. Burn Absent Trauma Absent GI Symptoms None Food Allergy No Current % PO Good (75-100%) Minimum of two criteria No Body Fat Depletion Mild depletion (non-severe) #1 Nutrition Diagnosis Increased nutrient needs ( specify in comment below),No nutrition diagnosis at this time Comments: Protein Etiology wound healing As Evidenced by Signs and Symptoms sacral and back wounds Is patient on ventilator? No Is Patient Ambulatory and/or Out of Bed No REE-([facility]-confined to bed) 8050.696 Calculation Used for Recommendations [facility] Additional Notes Protein needs: 98-117 g/day (1 .25-1.5 g/kg/day) Fluid needs: 1 ml/kcal or per MD Nutrition Intervention Change Diet Order: Change to Renal diet Add Supplement/Snack (indicate name/kcal Add Saurabh BID /protein ) Provides kCal: 190 Provides Protein (gm) 5 Goal #1 Meet >75% of energy and protein needs Anticipated Discharge Needs: Renal Diet Follow-Up By: 05/25/19 Additional Comments Follow up for PO intakes and ONS need
[2019-05-22] MEDS: ACETAMINOPHEN 325 MG TAB PO PRN (19:46)
[2019-05-22] MEDS: diphenhydrAMINE 25 MG CAP PO PRN (19:46)
[2019-05-23] MEDS: HEPARIN 5,000 UNIT/1 ML VIAL SUB-Q SCH ×2 (09:31→21:49)
[2019-05-23] MEDS: diphenhydrAMINE 25 MG CAP PO PRN (09:32)
[2019-05-23] MEDS: CEFEPIME/NS 2 GM/100 ML 2 GM/100 ML BAG IV SCH (09:32)
--- NOTE | 2019-05-23 10:11 | Progress Note ---
Assessment and Plan Assessment and plan: Toxic metabolic encephalopathy -Multifactorial, sepsis, UTI, cellulitis -Blood cultures pending -neuro checks -Continue supportive care Sepsis -Follow-up CBC -Continue IV Abx -Cultures pending -Continue supportive care CKD -Avoid nephrotoxic agents -Renal dose all meds -strict I/O, -monitor uop q shift, Acute cystitis -IV antibiotics continued -Culture pending -IV fluids Dementia -Reorient as needed -Supportive care -Continue home meds once reconciled Cellulitis -site, buttock -Wound care consult -On IV ABX DVT prophylaxis -SCDs bilateral extremities -Heparin subcu History Interval history: No new issues overnight. Hospitalist Physical - Constitutional Vitals: Temp Pulse Resp BP Pulse Ox 98.7 F 100 H 18 138/81 99 05/23/19 07:33 05/23/19 07:33 05/23/19 07:33 05/23/19 07:33 05/23/19 07:33 General appearance: Present: no acute distress, well-nourished - EENT Eyes: Present: PERRL, EOM intact ENT: hearing intact, clear oral mucosa, dentition normal - Neck Neck: Present: supple, normal ROM - Respiratory Respiratory effort: normal Respiratory: bilateral: CTA - Cardiovascular Rhythm: regular Heart Sounds: Present: S1 & S2. Absent: gallop, rub - Extremities Extremities: no ischemia, No edema, Full ROM - Abdominal General gastrointestinal: soft, non-tender, non-distended, normal bowel sounds - Integumentary Integumentary: Present: clear, warm, dry - Neurologic Neurologic: CNII-XII intact, moves all extremities Results - Labs CBC & Chem 7: 05/21/19 22:56 05/21/19 22:56 Labs: Laboratory Last Values WBC 16.1 K/mm3 (4.5-11.0) H 05/21/19 22:56 RBC 3.87 M/mm3 (3.65-5.03) 05/21/19 22:56 Hgb 11.2 gm/dl (11.8-15.2) L 05/21/19 22:56 Hct 33.9 % (35.5-45.6) L 05/21/19 22:56 MCV 88 fl (84-94) 05/21/19 22:56 MCH 29 pg (28-32) 05/21/19 22:56 MCHC 33 % (32-34) 05/21/19 22:56 RDW 13.9 % (13.2-15.2) 05/21/19 22:56 Plt Count 618 K/mm3 (140-440) H 05/21/19 22:56 Lymph % (Auto) 6.8 % (13.4-35.0) L 05/21/19 22:56 [place] % (Auto) 10.9 % (0.0-7.3) H 05/21/19 22:56 Eos % (Auto) 9.2 % (0.0-4.3) H 05/21/19 22:56 Baso % (Auto) 1.1 % (0.0-1.8) 05/21/19 22:56 Lymph # 1.1 K/mm3 (1.2-5.4) L 05/21/19 22:56 [place] # 1.8 K/mm3 (0.0-0.8) H 05/21/19 22:56 Eos # 1.5 K/mm3 (0.0-0.4) H 05/21/19 22:56 Baso # 0.2 K/mm3 (0.0-0.1) H 05/21/19 22:56 Seg Neutrophils % 72.0 % (40.0-70.0) H 05/21/19 22:56 Seg Neutrophils # 11.6 K/mm3 (1.8-7.7) H 05/21/19 22:56 Sodium 147 mmol/L (137-145) H 05/21/19 22:56 Potassium 4.2 mmol/L (3.6-5.0) 05/21/19 22:56 Chloride 114.9 mmol/L (98-107) H 05/21/19 22:56 Carbon Dioxide 20 mmol/L (22-30) L 05/21/19 22:56 Anion Gap 16 mmol/L 05/21/19 22:56 BUN 20 mg/dL (9-20) 05/21/19 22:56 Creatinine 2.6 mg/dL (0.8-1.5) H 05/21/19 22:56 Estimated GFR 28 ml/min 05/21/19 22:56 BUN/Creatinine Ratio 8 % 05/21/19 22:56 Glucose 110 mg/dL (75-100) H 05/21/19 22:56 Lactic Acid 1.20 mmol/L (0.7-2.0) 05/22/19 09:24 Calcium 8.4 mg/dL (8.4-10.2) 05/21/19 22:56 Total Bilirubin 0.20 mg/dL (0.1-1.2) 05/21/19 22:56 AST 15 units/L (5-40) 05/21/19 22:56 ALT 7 units/L (7-56) 05/21/19 22:56 Alkaline Phosphatase 69 units/L (35-129) 05/21/19 22:56 Troponin T 0.021 ng/mL (0.00-0.029) 05/21/19 22:56 Total Protein 6.9 g/dL (6.3-8.2) 05/21/19 22:56 Albumin 2.4 g/dL (3.9-5) L 05/21/19 22:56 Albumin/Globulin Ratio 0.5 % 05/21/19 22:56 Urine Color Yellow (Yellow) 05/21/19 Unknown Urine Turbidity Slightly-cloudy (Clear) 05/21/19 Unknown Urine pH 5.0 (5.0-7.0) 05/21/19 Unknown Ur Specific [place] 1.013 (1.003-1.030) 05/21/19 Unknown Urine Protein <15 mg/dl mg/dL (Negative) 05/21/19 Unknown Urine Glucose (UA) Neg mg/dL (Negative) 05/21/19 Unknown Urine Ketones Neg mg/dL (Negative) 05/21/19 Unknown Urine Blood Sm (Negative) 05/21/19 Unknown Urine Nitrite Neg (Negative) 05/21/19 Unknown Urine Bilirubin Neg (Negative) 05/21/19 Unknown Urine Urobilinogen < 2.0 mg/dL (<2.0) 05/21/19 Unknown Ur Leukocyte Esterase Sm (Negative) 05/21/19 Unknown Urine WBC (Auto) 19.0 /HPF (0.0-6.0) H 05/21/19 Unknown Urine RBC (Auto) 4.0 /HPF (0.0-6.0) 05/21/19 Unknown U Epithel Cells (Auto) < 1.0 /HPF (0-13.0) 05/21/19 Unknown Urine Bacteria (Auto) 1+ /HPF (Negative) 05/21/19 Unknown Hyaline Casts 1 /LPF 05/21/19 Unknown Urine Mucus Few /HPF 05/21/19 Unknown Blood Type O POSITIVE 05/22/19 02:30 Antibody Screen Negative 05/22/19 02:30 Active Medications - Current Medications Current Medications: Generic Name Dose Route Start Last Admin Trade Name Freq PRN Reason Stop Dose Admin Acetaminophen 650 mg 05/22/19 00:43 05/22/19 19:46 Tylenol PO 650 mg Q4H PRN Administration Pain MILD(1-3)/Fever >100.5/FERNANDES Diphenhydramine HCl 25 mg 05/22/19 18:44 05/23/19 09:32 Benadryl PO 25 mg Q6H PRN Administration Itching Heparin Sodium (Porcine) 5,000 unit 05/22/19 10:00 05/23/19 09:31 Heparin SUB-Q 5,000 unit Q12HR LILI Administration Cefepime HCl 2 gm in 100 mls @ 200 mls/hr 05/22/19 10:00 05/23/19 09:32 Cefepime/Ns 2 Gm/100 Ml IV 200 mls/hr Q24HR LILI Administration Protocol Sodium Chloride 1,000 mls @ 75 mls/hr 05/22/19 04:30 05/22/19 20:40 Nacl 0.9% 1000 Ml IV 75 mls/hr DIRECT LILI Administration Ondansetron HCl 4 mg 05/22/19 00:43 Zofran IV Q8H PRN Nausea And Vomiting Sodium Chloride 10 ml 05/22/19 10:00 05/23/19 09:32 Sodium Chloride Flush Syringe 10 Ml IV 10 ml BID LILI Administration Sodium Chloride 10 ml 05/22/19 00:43 Sodium Chloride Flush Syringe 10 Ml IV PRN PRN LINE FLUSH Nutrition/Malnutrition Assess - Dietary Evaluation Nutrition/Malnutrition Findings: Nutrition Notes Start: 05/22/19 11:12 Freq: Status: Active Protocol: Document 05/22/19 11:12 CT (Rec: 05/22/19 11:19 CT [id number]) Co-Sign 05/22/19 11:12 LP Nutrition Notes Need for Assessment generated from: staff respiratory therapist,MST Initial or Follow up Assessment Current Diagnosis CKD(stage I-IV),Sepsis, Hypertension,Stroke Other Pertinent Diagnosis AMS, dementia, Acute Metabolic Encephalopathy, wounds Current Diet Cardiac Diet Labs/Tests Na 147 Cr 2.6 Glu 110 Pertinent Medications NS 75 ml/hr Height 5 ft 6 in Weight 78 kg Usual Body Weight 65.771 kg [place] Body Weight (kg) 64.54 BMI 27.7 Intake Prior to Admission Good Weight Status Overweight Subjective/Other Information RN screen for MST. Pt stated his UBW is 145 lbs and has not noticed any wt loss. 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 Pt stated he has a good appetite and has not had any N/V. Noted slight orbital wasting. Burn Absent Trauma Absent GI Symptoms None Food Allergy No Current % PO Good (75-100%) Minimum of two criteria No Body Fat Depletion Mild depletion (non-severe) #1 Nutrition Diagnosis Increased nutrient needs ( specify in comment below),No nutrition diagnosis at this time Comments: Protein Etiology wound healing As Evidenced by Signs and Symptoms sacral and back wounds Is patient on ventilator? No Is Patient Ambulatory and/or Out of Bed No REE-([facility]-confined to bed) [phone] [facility]culation [facility] Additional Notes Protein needs: 62-117 g/day (0 .8-1.5 g/kg/day) CKD and wound healing Fluid needs: 1 ml/kcal or per MD Nutrition Intervention Change Diet Order: Change to Renal diet Add Supplement/Snack (indicate name/kcal Add Saurabh BID /protein ) Provides kCal: 190 Provides Protein (gm) 5 Goal #1 Meet >75% of energy and protein needs Anticipated Discharge Needs: Renal Diet Follow-Up By: 05/25/19 Additional Comments Follow up for PO intakes and ONS need
[2019-05-23] MEDS: ACETAMINOPHEN 325 MG TAB PO PRN (17:13)
[2019-05-23] MEDS: SODIUM CHLORIDE 0.9% 1000 ML 1,000 ML IV SCH (23:28)
[2019-05-24] MEDS: diphenhydrAMINE 25 MG CAP PO PRN ×3 (01:46→18:55)
[2019-05-24 05:01] LABS: Hematocrit 33.8 % (35.5-45.6); Hemoglobin 10.5 gm/dl (11.8-15.2); Mean Corpuscular HGB Conc 31 % (32-34); Mean Corpuscular Volume 91 fl (84-94); Platelet Count 482 K/mm3 (140-440); Red Cell Distribution Width 14.4 % (13.2-15.2)
[2019-05-24 05:07] LABS: Calcium 8.1 mg/dL (8.4-10.2)
[2019-05-24 05:40] LABS: Band Neutrophils # (Manual) 0.4 K/mm3; Basophils % (Manual) 0 % (0.0-1.8); Total Cells Counted 100
[2019-05-24 05:41] LABS: Burr Cells Rare; Platelet Estimate Consistent w Auto
--- NOTE | 2019-05-24 08:09 | Progress Note ---
Assessment and Plan Assessment and plan: Toxic metabolic encephalopathy -Multifactorial, sepsis, UTI, cellulitis -Blood cultures pending -neuro checks -Continue supportive care Sepsis -Persistent leukocytosis -Consider ID consultation -Continue IV Abx -Cultures pending -Continue supportive care CKD -Patient at baseline. Creatinine September 2018 1.9. -Avoid nephrotoxic agents -Renal dose all meds -strict I/O, -monitor uop q shift, Hypernatremia -Start D5W IV fluids Acute cystitis -IV antibiotics continued -Culture pending -IV fluids Dementia -Reorient as needed -Supportive care -Continue home meds once reconciled Cellulitis -site, buttock -Wound care consult -On IV ABX DVT prophylaxis -SCDs bilateral extremities -Heparin subcu History Interval history: No new issues overnight. Hospitalist Physical - Constitutional Vitals: Temp Pulse Resp BP Pulse Ox 98.1 F 91 H 18 114/50 96 05/24/19 07:41 05/24/19 07:41 05/24/19 07:41 05/24/19 07:41 05/24/19 07:41 General appearance: Present: no acute distress, well-nourished - EENT Eyes: Present: PERRL, EOM intact ENT: hearing intact, clear oral mucosa, dentition normal - Neck Neck: Present: supple, normal ROM - Respiratory Respiratory effort: normal Respiratory: bilateral: CTA - Cardiovascular Rhythm: regular Heart Sounds: Present: S1 & S2. Absent: gallop, rub - Extremities Extremities: no ischemia, No edema, Full ROM - Abdominal General gastrointestinal: soft, non-tender, non-distended, normal bowel sounds - Integumentary Integumentary: Present: clear, warm, dry - Neurologic Neurologic: CNII-XII intact, moves all extremities Results - Labs CBC & Chem 7: 05/24/19 04:11 05/24/19 04:11 Labs: Laboratory Last Values WBC 17.5 K/mm3 (4.5-11.0) H 05/24/19 04:11 RBC 3.70 M/mm3 (3.65-5.03) 05/24/19 04:11 Hgb 10.5 gm/dl (11.8-15.2) L 05/24/19 04:11 Hct 33.8 % (35.5-45.6) L 05/24/19 04:11 MCV 91 fl (84-94) 05/24/19 04:11 MCH 28 pg (28-32) 05/24/19 04:11 MCHC 31 % (32-34) L 05/24/19 04:11 RDW 14.4 % (13.2-15.2) 05/24/19 04:11 Plt Count 482 K/mm3 (140-440) H 05/24/19 04:11 Lymph % (Auto) 6.8 % (13.4-35.0) L 05/21/19 22:56 [place] % (Auto) 10.9 % (0.0-7.3) H 05/21/19 22:56 Eos % (Auto) 9.2 % (0.0-4.3) H 05/21/19 22:56 Baso % (Auto) 1.1 % (0.0-1.8) 05/21/19 22:56 Lymph # 1.1 K/mm3 (1.2-5.4) L 05/21/19 22:56 [place] # 1.8 K/mm3 (0.0-0.8) H 05/21/19 22:56 Eos # 1.5 K/mm3 (0.0-0.4) H 05/21/19 22:56 Baso # 0.2 K/mm3 (0.0-0.1) H 05/21/19 22:56 Add Manual Diff Complete 05/24/19 04:11 Total Counted 100 05/24/19 04:11 Seg Neutrophils % 72.0 % (40.0-70.0) H 05/21/19 22:56 Seg Neuts % (Manual) 76.0 % (40.0-70.0) H 05/24/19 04:11 Band Neutrophils % 2.0 % 05/24/19 04:11 Lymphocytes % (Manual) 6.0 % (13.4-35.0) L 05/24/19 04:11 Reactive Lymphs % (Man) 0 % 05/24/19 04:11 Monocytes % (Manual) 8.0 % (0.0-7.3) H 05/24/19 04:11 Eosinophils % (Manual) 6.0 % (0.0-4.3) H 05/24/19 04:11 Basophils % (Manual) 0 % (0.0-1.8) 05/24/19 04:11 Metamyelocytes % 2.0 % 05/24/19 04:11 Myelocytes % 0 % 05/24/19 04:11 Promyelocytes % 0 % 05/24/19 04:11 Blast Cells % 0 % 05/24/19 04:11 Nucleated RBC % Not Reportable 05/24/19 04:11 Seg Neutrophils # 11.6 K/mm3 (1.8-7.7) H 05/21/19 22:56 Seg Neutrophils # Man 13.3 K/mm3 (1.8-7.7) H 05/24/19 04:11 Band Neutrophils # 0.4 K/mm3 05/24/19 04:11 Lymphocytes # (Manual) 1.1 K/mm3 (1.2-5.4) L 05/24/19 04:11 Abs React Lymphs (Man) 0.0 K/mm3 05/24/19 04:11 Monocytes # (Manual) 1.4 K/mm3 (0.0-0.8) H 05/24/19 04:11 Eosinophils # (Manual) 1.1 K/mm3 (0.0-0.4) H 05/24/19 04:11 Basophils # (Manual) 0.0 K/mm3 (0.0-0.1) 05/24/19 04:11 Metamyelocytes # 0.4 K/mm3 05/24/19 04:11 Myelocytes # 0.0 K/mm3 05/24/19 04:11 Promyelocytes # 0.0 K/mm3 05/24/19 04:11 Blast Cells # 0.0 K/mm3 05/24/19 04:11 WBC Morphology Not Reportable 05/24/19 04:11 Hypersegmented Neuts Not Reportable 05/24/19 04:11 Hyposegmented Neuts Not Reportable 05/24/19 04:11 Hypogranular Neuts Not Reportable 05/24/19 04:11 Smudge Cells Not Reportable 05/24/19 04:11 Toxic Granulation Not Reportable 05/24/19 04:11 Toxic Vacuolation Not Reportable 05/24/19 04:11 Dohle Bodies Not Reportable 05/24/19 04:11 [place]-Huet Anomaly Not Reportable 05/24/19 04:11 Laura Rods Not Reportable 05/24/19 04:11 Platelet Estimate Consistent w auto 05/24/19 04:11 Clumped Platelets Not Reportable 05/24/19 04:11 Plt Clumps, EDTA Not Reportable 05/24/19 04:11 Large Platelets Not Reportable 05/24/19 04:11 Giant Platelets Not Reportable 05/24/19 04:11 Platelet Satelliting Not Reportable 05/24/19 04:11 Plt Morphology Comment Not Reportable 05/24/19 04:11 RBC Morphology Not Reportable 05/24/19 04:11 Dimorphic RBCs Not Reportable 05/24/19 04:11 Polychromasia Not Reportable 05/24/19 04:11 Hypochromasia Not Reportable 05/24/19 04:11 Poikilocytosis Not Reportable 05/24/19 04:11 Anisocytosis Not Reportable 05/24/19 04:11 Microcytosis Not Reportable 05/24/19 04:11 Macrocytosis Not Reportable 05/24/19 04:11 Spherocytes Not Reportable 05/24/19 04:11 Pappenheimer Bodies Not Reportable 05/24/19 04:11 Sickle Cells Not Reportable 05/24/19 04:11 Target Cells Not Reportable 05/24/19 04:11 Tear Drop Cells Not Reportable 05/24/19 04:11 Ovalocytes Not Reportable 05/24/19 04:11 Helmet Cells Not Reportable 05/24/19 04:11 [place] Bodies Not Reportable 05/24/19 04:11 [place] Rings Not Reportable 05/24/19 04:11 [place] Cells Rare 05/24/19 04:11 Bite Cells Not Reportable 05/24/19 04:11 Crenated Cell Not Reportable 05/24/19 04:11 Elliptocytes Not Reportable 05/24/19 04:11 Acanthocytes (Spur) Not Reportable 05/24/19 04:11 Rouleaux Not Reportable 05/24/19 04:11 Hemoglobin C Crystals Not Reportable 05/24/19 04:11 Schistocytes Not Reportable 05/24/19 04:11 Malaria parasites Not Reportable 05/24/19 04:11 Jv Bodies Not Reportable 05/24/19 04:11 Hem Pathologist Commnt No 05/24/19 04:11 Sodium 152 mmol/L (137-145) H 05/24/19 04:11 Potassium 4.3 mmol/L (3.6-5.0) 05/24/19 04:11 Chloride 124.5 mmol/L (98-107) H 05/24/19 04:11 Carbon Dioxide 17 mmol/L (22-30) L 05/24/19 04:11 Anion Gap 15 mmol/L 05/24/19 04:11 BUN 30 mg/dL (9-20) H 05/24/19 04:11 Creatinine 1.9 mg/dL (0.8-1.5) H 05/24/19 04:11 Estimated GFR 41 ml/min 05/24/19 04:11 BUN/Creatinine Ratio 16 % 05/24/19 04:11 Glucose 95 mg/dL (75-100) 05/24/19 04:11 Lactic Acid 1.20 mmol/L (0.7-2.0) 05/22/19 09:24 Calcium 8.1 mg/dL (8.4-10.2) L 05/24/19 04:11 Total Bilirubin 0.20 mg/dL (0.1-1.2) 05/21/19 22:56 AST 15 units/L (5-40) 05/21/19 22:56 ALT 7 units/L (7-56) 05/21/19 22:56 Alkaline Phosphatase 69 units/L (35-129) 05/21/19 22:56 Troponin T 0.021 ng/mL (0.00-0.029) 05/21/19 22:56 Total Protein 6.9 g/dL (6.3-8.2) 05/21/19 22:56 Albumin 2.4 g/dL (3.9-5) L 05/21/19 22:56 Albumin/Globulin Ratio 0.5 % 05/21/19 22:56 Urine Color Yellow (Yellow) 05/21/19 Unknown Urine Turbidity Slightly-cloudy (Clear) 05/21/19 Unknown Urine pH 5.0 (5.0-7.0) 05/21/19 Unknown Ur Specific [place] 1.013 (1.003-1.030) 05/21/19 Unknown Urine Protein <15 mg/dl mg/dL (Negative) 05/21/19 Unknown Urine Glucose (UA) Neg mg/dL (Negative) 05/21/19 Unknown Urine Ketones Neg mg/dL (Negative) 05/21/19 Unknown Urine Blood Sm (Negative) 05/21/19 Unknown Urine Nitrite Neg (Negative) 05/21/19 Unknown Urine Bilirubin Neg (Negative) 05/21/19 Unknown Urine Urobilinogen < 2.0 mg/dL (<2.0) 05/21/19 Unknown Ur Leukocyte Esterase Sm (Negative) 05/21/19 Unknown Urine WBC (Auto) 19.0 /HPF (0.0-6.0) H 05/21/19 Unknown Urine RBC (Auto) 4.0 /HPF (0.0-6.0) 05/21/19 Unknown U Epithel Cells (Auto) < 1.0 /HPF (0-13.0) 05/21/19 Unknown Urine Bacteria (Auto) 1+ /HPF (Negative) 05/21/19 Unknown Hyaline Casts 1 /LPF 05/21/19 Unknown Urine Mucus Few /HPF 05/21/19 Unknown Blood Type O POSITIVE 05/22/19 02:30 Antibody Screen Negative 05/22/19 02:30 Active Medications - Current Medications Current Medications: Generic Name Dose Route Start Last Admin Trade Name Freq PRN Reason Stop Dose Admin Acetaminophen 650 mg 05/22/19 00:43 05/23/19 17:13 Tylenol PO 650 mg Q4H PRN Administration Pain MILD(1-3)/Fever >100.5/FERNANDES Diphenhydramine HCl 25 mg 05/22/19 18:44 05/24/19 01:46 Benadryl PO 25 mg Q6H PRN Administration Itching Heparin Sodium (Porcine) 5,000 unit 05/22/19 10:00 05/23/19 21:49 Heparin SUB-Q 5,000 unit Q12HR LILI Administration Cefepime HCl 2 gm in 100 mls @ 200 mls/hr 05/22/19 10:00 05/23/19 09:32 Cefepime/Ns 2 Gm/100 Ml IV 200 mls/hr Q24HR LILI Administration Protocol Sodium Chloride 1,000 mls @ 75 mls/hr 05/22/19 04:30 05/23/19 23:28 Nacl 0.9% 1000 Ml IV 75 mls/hr DIRECT LILI Administration Ondansetron HCl 4 mg 05/22/19 00:43 Zofran IV Q8H PRN Nausea And Vomiting Sodium Chloride 10 ml 05/22/19 10:00 05/23/19 21:49 Sodium Chloride Flush Syringe 10 Ml IV 10 ml BID LILI Administration Sodium Chloride 10 ml 05/22/19 00:43 Sodium Chloride Flush Syringe 10 Ml IV PRN PRN LINE FLUSH Nutrition/Malnutrition Assess - Dietary Evaluation Nutrition/Malnutrition Findings: Nutrition Notes Start: 05/22/19 11:12 Freq: Status: Active Protocol: Document 05/22/19 11:12 CT (Rec: 05/22/19 11:19 CT [id number]) Co-Sign 05/22/19 11:12 LP Nutrition Notes 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 Pt stated his UBW is 145 lbs and has not noticed any wt loss. 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 Pt stated he has a good appetite and has not had any N/V. Noted slight orbital wasting. Burn Absent Trauma Absent GI Symptoms None Food Allergy No Current % PO Good (75-100%) Minimum of two criteria No Body Fat Depletion Mild depletion (non-severe) #1 Nutrition Diagnosis Increased nutrient needs ( specify in comment below),No nutrition diagnosis at this time Comments: Protein Etiology wound healing As Evidenced by Signs and Symptoms sacral and back wounds Is patient on ventilator? No Is Patient Ambulatory and/or Out of Bed No REE-([facility]-confined to bed) [phone] Calculation Used for Recommendations [facility] Additional Notes Protein needs: 62-117 g/day (0 .8-1.5 g/kg/day) CKD and wound healing Fluid needs: 1 ml/kcal or per MD Nutrition Intervention Change Diet Order: Change to Renal diet Add Supplement/Snack (indicate name/kcal Add Saurabh BID /protein ) Provides kCal: 190 Provides Protein (gm) 5 Goal #1 Meet >75% of energy and protein needs Anticipated Discharge Needs: Renal Diet Follow-Up By: 05/25/19 Additional Comments Follow up for PO intakes and ONS need
[2019-05-24] MEDS: CEFEPIME/NS 2 GM/100 ML 2 GM/100 ML BAG IV SCH (10:17)
[2019-05-24] MEDS: HEPARIN 5,000 UNIT/1 ML VIAL SUB-Q SCH ×2 (10:18→21:18)
[2019-05-24] MEDS: DEXTROSE 5% IN WATER 1,000 ML IV SCH (10:18)
[2019-05-24] MEDS: TRIAMCINOLONE 0.1% CREAM 15 GM TP SCH (21:18)
--- NOTE | 2019-05-25 09:06 | XRay Report ---
CHEST 1 VIEW INDICATION: Cough. COMPARISON: 05/21/2019 FINDINGS: Support devices: None. Heart: Within normal limits. Lungs/Pleura: No acute air space or interstitial disease. Additional findings: None. IMPRESSION: 1. No acute findings. Signer Name: David Cheung MD Signed: 05/25/2019 9:01 AM Workstation Name: [id number]
[2019-05-25 09:44] LABS: Hematocrit 31.5 % (35.5-45.6); Hemoglobin 10.2 gm/dl (11.8-15.2); Mean Corpuscular HGB Conc 32 % (32-34); Mean Corpuscular Volume 88 fl (84-94); Platelet Count 522 K/mm3 (140-440); Red Blood Count 3.57 M/mm3 (3.65-5.03)
[2019-05-25] MEDS: CEFEPIME/NS 2 GM/100 ML 2 GM/100 ML BAG IV SCH (09:48)
[2019-05-25] MEDS: HEPARIN 5,000 UNIT/1 ML VIAL SUB-Q SCH ×2 (09:50→22:33)
[2019-05-25] MEDS: TRIAMCINOLONE 0.1% CREAM 15 GM TP SCH ×2 (09:51→22:33)
[2019-05-25 09:59] LABS: Calcium 8.4 mg/dL (8.4-10.2)
[2019-05-25 10:28] LABS: Basophils % (Manual) 0 % (0.0-1.8); Total Cells Counted 100
[2019-05-25 10:29] LABS: Platelet Estimate Consistent w Auto; Target Cells Few
[2019-05-25] MEDS ORDERED: DEXTROSE 50% IN WATER (25GM) 50 ML VIAL IV STA (11:54)
--- NOTE | 2019-05-25 11:55 | Progress Note ---
Assessment and Plan Assessment and plan: Toxic metabolic encephalopathy -Multifactorial, sepsis, UTI, cellulitis -neuro checks -Continue supportive care Sepsis -Persistent leukocytosis -Consider ID consultation -Continue IV Abx -Cultures pending -Continue supportive care CKD -Patient at baseline. Creatinine September 2018 1.9. -Avoid nephrotoxic agents -Renal dose all meds -strict I/O, -monitor uop q shift, Hypernatremia -Start D5W IV fluids Acute cystitis -IV antibiotics continued -Culture pending -IV fluids Vomiting CXR done neg Bilateral upper ext swelling Get doppler Us Dementia -Reorient as needed -Supportive care -Continue home meds once reconciled Cellulitis -site, buttock -Wound care consult -On IV ABX DVT prophylaxis -SCDs bilateral extremities -Heparin subcutanous History Interval history: Vomited yesterday Hospitalist Physical - Physical exam Narrative exam: GEN: Not in acute distress, lying in bed, HEENT: Normocephalic, atraumatic, Neck: supple, No JVD Lungs: Clear to auscultation bilat, no wheeze, heart;S1 and S2 reg, no murmurs, rubs or gallop Abd:soft, non tender, normal bowel sounds Ext: Swelling both upper ext, No edema, no clubbing, no cyanosis Neuro: Awake,alert, sadrum: ulcers, eczematous rash on buttocks - Constitutional Vitals: Temp Pulse Resp BP Pulse Ox 98.5 F 87 18 123/61 99 05/25/19 07:21 05/25/19 07:21 05/25/19 10:00 05/25/19 07:21 05/25/19 10:00 General appearance: Present: no acute distress Results - Labs CBC & Chem 7: 05/25/19 09:28 05/25/19 09:28 Labs: Laboratory Last Values WBC 19.3 K/mm3 (4.5-11.0) H 05/25/19 09:28 RBC 3.57 M/mm3 (3.65-5.03) L 05/25/19 09:28 Hgb 10.2 gm/dl (11.8-15.2) L 05/25/19 09:28 Hct 31.5 % (35.5-45.6) L 05/25/19 09:28 MCV 88 fl (84-94) 05/25/19 09:28 MCH 29 pg (28-32) 05/25/19 09:28 MCHC 32 % (32-34) 05/25/19 09:28 RDW 14.0 % (13.2-15.2) 05/25/19 09:28 Plt Count 522 K/mm3 (140-440) H 05/25/19 09:28 Lymph % (Auto) 6.8 % (13.4-35.0) L 05/21/19 22:56 [place] % (Auto) 10.9 % (0.0-7.3) H 05/21/19 22:56 Eos % (Auto) 9.2 % (0.0-4.3) H 05/21/19 22:56 Baso % (Auto) 1.1 % (0.0-1.8) 05/21/19 22:56 Lymph # 1.1 K/mm3 (1.2-5.4) L 05/21/19 22:56 [place] # 1.8 K/mm3 (0.0-0.8) H 05/21/19 22:56 Eos # 1.5 K/mm3 (0.0-0.4) H 05/21/19 22:56 Baso # 0.2 K/mm3 (0.0-0.1) H 05/21/19 22:56 Add Manual Diff Complete 05/25/19 09:28 Total Counted 100 05/25/19 09:28 Seg Neutrophils % 72.0 % (40.0-70.0) H 05/21/19 22:56 Seg Neuts % (Manual) 91.0 % (40.0-70.0) H 05/25/19 09:28 Band Neutrophils % 0 % 05/25/19 09:28 Lymphocytes % (Manual) 2.0 % (13.4-35.0) L 05/25/19 09:28 Reactive Lymphs % (Man) 0 % 05/25/19 09:28 Monocytes % (Manual) 3.0 % (0.0-7.3) 05/25/19 09:28 Eosinophils % (Manual) 4.0 % (0.0-4.3) 05/25/19 09:28 Basophils % (Manual) 0 % (0.0-1.8) 05/25/19 09:28 Metamyelocytes % 0 % 05/25/19 09:28 Myelocytes % 0 % 05/25/19 09:28 Promyelocytes % 0 % 05/25/19 09:28 Blast Cells % 0 % 05/25/19 09:28 Nucleated RBC % Not Reportable 05/25/19 09:28 Seg Neutrophils # 11.6 K/mm3 (1.8-7.7) H 05/21/19 22:56 Seg Neutrophils # Man 17.6 K/mm3 (1.8-7.7) H 05/25/19 09:28 Band Neutrophils # 0.0 K/mm3 05/25/19 09:28 Lymphocytes # (Manual) 0.4 K/mm3 (1.2-5.4) L 05/25/19 09:28 Abs React Lymphs (Man) 0.0 K/mm3 05/25/19 09:28 Monocytes # (Manual) 0.6 K/mm3 (0.0-0.8) 05/25/19 09:28 Eosinophils # (Manual) 0.8 K/mm3 (0.0-0.4) H 05/25/19 09:28 Basophils # (Manual) 0.0 K/mm3 (0.0-0.1) 05/25/19 09:28 Metamyelocytes # 0.0 K/mm3 05/25/19 09:28 Myelocytes # 0.0 K/mm3 05/25/19 09:28 Promyelocytes # 0.0 K/mm3 05/25/19 09:28 Blast Cells # 0.0 K/mm3 05/25/19 09:28 WBC Morphology Not Reportable 05/25/19 09:28 Hypersegmented Neuts Not Reportable 05/25/19 09:28 Hyposegmented Neuts Not Reportable 05/25/19 09:28 Hypogranular Neuts Not Reportable 05/25/19 09:28 Smudge Cells Not Reportable 05/25/19 09:28 Toxic Granulation Not Reportable 05/25/19 09:28 Toxic Vacuolation Not Reportable 05/25/19 09:28 Dohle Bodies Not Reportable 05/25/19 09:28 Pelger-Huet Anomaly Not Reportable 05/25/19 09:28 Laura Rods Not Reportable 05/25/19 09:28 Platelet Estimate Consistent w auto 05/25/19 09:28 Clumped Platelets Not Reportable 05/25/19 09:28 Plt Clumps, EDTA Not Reportable 05/25/19 09:28 Large Platelets Not Reportable 05/25/19 09:28 Giant Platelets Not Reportable 05/25/19 09:28 Platelet Satelliting Not Reportable 05/25/19 09:28 Plt Morphology Comment Not Reportable 05/25/19 09:28 RBC Morphology Not Reportable 05/25/19 09:28 Dimorphic RBCs Not Reportable 05/25/19 09:28 Polychromasia Few 05/25/19 09:28 Hypochromasia Not Reportable 05/25/19 09:28 Poikilocytosis Not Reportable 05/25/19 09:28 Anisocytosis Not Reportable 05/25/19 09:28 Microcytosis Not Reportable 05/25/19 09:28 Macrocytosis Not Reportable 05/25/19 09:28 Spherocytes Not Reportable 05/25/19 09:28 Pappenheimer Bodies Not Reportable 05/25/19 09:28 Sickle Cells Not Reportable 05/25/19 09:28 Target Cells Few 05/25/19 09:28 Tear Drop Cells Not Reportable 05/25/19 09:28 Ovalocytes Not Reportable 05/25/19 09:28 Helmet Cells Not Reportable 05/25/19 09:28 [place] Bodies Not Reportable 05/25/19 09:28 [place] Rings Not Reportable 05/25/19 09:28 [place] Cells Not Reportable 05/25/19 09:28 Bite Cells Not Reportable 05/25/19 09:28 Crenated Cell Not Reportable 05/25/19 09:28 Elliptocytes Not Reportable 05/25/19 09:28 Acanthocytes (Spur) Not Reportable 05/25/19 09:28 Rouleaux Not Reportable 05/25/19 09:28 Hemoglobin C Crystals Not Reportable 05/25/19 09:28 Schistocytes Not Reportable 05/25/19 09:28 Malaria parasites Not Reportable 05/25/19 09:28 Jv Bodies Not Reportable 05/25/19 09:28 Hem Pathologist Commnt No 05/25/19 09:28 Sodium 151 mmol/L (137-145) H 05/25/19 09:28 Potassium 4.1 mmol/L (3.6-5.0) 05/25/19 09:28 Chloride 119.0 mmol/L (98-107) H 05/25/19 09:28 Carbon Dioxide 20 mmol/L (22-30) L 05/25/19 09:28 Anion Gap 16 mmol/L 05/25/19 09:28 BUN 27 mg/dL (9-20) H 05/25/19 09:28 Creatinine 1.8 mg/dL (0.8-1.5) H 05/25/19 09:28 Estimated GFR 44 ml/min 05/25/19 09:28 BUN/Creatinine Ratio 15 % 05/25/19 09:28 Glucose 102 mg/dL (75-100) H 05/25/19 09:28 Lactic Acid 1.20 mmol/L (0.7-2.0) 05/22/19 09:24 Calcium 8.4 mg/dL (8.4-10.2) 05/25/19 09:28 Total Bilirubin 0.20 mg/dL (0.1-1.2) 05/21/19 22:56 AST 15 units/L (5-40) 05/21/19 22:56 ALT 7 units/L (7-56) 05/21/19 22:56 Alkaline Phosphatase 69 units/L (35-129) 05/21/19 22:56 Troponin T 0.021 ng/mL (0.00-0.029) 05/21/19 22:56 Total Protein 6.9 g/dL (6.3-8.2) 05/21/19 22:56 Albumin 2.4 g/dL (3.9-5) L 05/21/19 22:56 Albumin/Globulin Ratio 0.5 % 05/21/19 22:56 Urine Color Yellow (Yellow) 05/21/19 Unknown Urine Turbidity Slightly-cloudy (Clear) 05/21/19 Unknown Urine pH 5.0 (5.0-7.0) 05/21/19 Unknown Ur Specific [place] 1.013 (1.003-1.030) 05/21/19 Unknown Urine Protein <15 mg/dl mg/dL (Negative) 05/21/19 Unknown Urine Glucose (UA) Neg mg/dL (Negative) 05/21/19 Unknown Urine Ketones Neg mg/dL (Negative) 05/21/19 Unknown Urine Blood Sm (Negative) 05/21/19 Unknown Urine Nitrite Neg (Negative) 05/21/19 Unknown Urine Bilirubin Neg (Negative) 05/21/19 Unknown Urine Urobilinogen < 2.0 mg/dL (<2.0) 05/21/19 Unknown Ur Leukocyte Esterase Sm (Negative) 05/21/19 Unknown Urine WBC (Auto) 19.0 /HPF (0.0-6.0) H 05/21/19 Unknown Urine RBC (Auto) 4.0 /HPF (0.0-6.0) 05/21/19 Unknown U Epithel Cells (Auto) < 1.0 /HPF (0-13.0) 05/21/19 Unknown Urine Bacteria (Auto) 1+ /HPF (Negative) 05/21/19 Unknown Hyaline Casts 1 /LPF 05/21/19 Unknown Urine Mucus Few /HPF 05/21/19 Unknown Blood Type O POSITIVE 05/22/19 02:30 Antibody Screen Negative 05/22/19 02:30 Active Medications - Current Medications Current Medications: Generic Name Dose Route Start Last Admin Trade Name Freq PRN Reason Stop Dose Admin Acetaminophen 650 mg 05/22/19 00:43 05/23/19 17:13 Tylenol PO 650 mg Q4H PRN Administration Pain MILD(1-3)/Fever >100.5/FERNANDES Dextrose 25 gm 05/25/19 11:54 D50w (25gm) Vial IV 05/25/19 11:55 ONCE STA Diphenhydramine HCl 25 mg 05/22/19 18:44 05/24/19 18:55 Benadryl PO 25 mg Q6H PRN Administration Itching Heparin Sodium (Porcine) 5,000 unit 05/22/19 10:00 05/25/19 09:50 Heparin SUB-Q 5,000 unit Q12HR LILI Administration Cefepime HCl 2 gm in 100 mls @ 200 mls/hr 05/22/19 10:00 05/25/19 09:48 Cefepime/Ns 2 Gm/100 Ml IV 200 mls/hr Q24HR LILI Administration Protocol Dextrose 1,000 mls @ 75 mls/hr 05/24/19 09:00 05/24/19 10:18 D5w IV 75 mls/hr DIRECT LILI Administration Ondansetron HCl 4 mg 05/22/19 00:43 05/24/19 12:21 Zofran IV 4 mg Q8H PRN Administration Nausea And Vomiting Sodium Chloride 10 ml 05/22/19 10:00 05/25/19 09:51 Sodium Chloride Flush Syringe 10 Ml IV 10 ml BID LILI Administration Sodium Chloride 10 ml 05/22/19 00:43 Sodium Chloride Flush Syringe 10 Ml IV PRN PRN LINE FLUSH Triamcinolone Acetonide 1 applic 05/24/19 22:00 05/25/19 09:51 Kenalog TP 1 applic BID LILI Administration Nutrition/Malnutrition Assess - Dietary Evaluation Nutrition/Malnutrition Findings: Nutrition Notes Start: 05/22/19 11:12 Freq: Status: Active Protocol: Document 05/22/19 11:12 CT (Rec: 05/22/19 11:19 CT [id number]) Co-Sign 05/22/19 11:12 LP Nutrition Notes 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 Pt stated his UBW is 145 lbs and has not noticed any wt loss. Pt stated he was eating well [employer]OP[employer] and consumed 75% of breakfast tray. Pt stated he has a good appetite and has not had any N/V. Noted slight orbital wasting. Burn Absent Trauma Absent GI Symptoms None Food Allergy No Current % PO Good (75-100%) Minimum of two criteria No Body Fat Depletion Mild depletion (non-severe) #1 Nutrition Diagnosis Increased nutrient needs ( specify in comment below),No nutrition diagnosis at this time Comments: Protein Etiology wound healing As Evidenced by Signs and Symptoms sacral and back wounds Is patient on ventilator? No Is Patient Ambulatory and/or Out of Bed No REE-([facility]-confined to bed) [phone] Calculation Used for Recommendations [facility] Additional Notes Protein needs: 62-117 g/day (0 .8-1.5 g/kg/day) CKD and wound healing Fluid needs: 1 ml/kcal or per MD Nutrition Intervention Change Diet Order: Change to Renal diet Add Supplement/Snack (indicate name/kcal Add Saurabh BID /protein ) Provides kCal: 190 Provides Protein (gm) 5 Goal #1 Meet >75% of energy and protein needs Anticipated Discharge Needs: Renal Diet Follow-Up By: 05/25/19 Additional Comments Follow up for PO intakes and ONS need
[2019-05-25] MEDS ORDERED: DEXTROSE 50% IN WATER (25GM) 50 ML SYRINGE IV ONE (12:00)
--- NOTE | 2019-05-25 14:31 | Vascular Lab Report ---
VL venous duplex UE BILAT INDICATION / CLINICAL INFORMATION: swelling both upper ext. COMPARISON: None available. FINDINGS: No evidence of deep vein thrombosis in either arm. IMPRESSION: 1. Negative study. No evidence of DVT. Signer Name: Juan Wolfe MD Signed: 05/25/2019 2:26 PM Workstation Name: [id number]
[2019-05-25] MEDS: ACETAMINOPHEN 325 MG TAB PO PRN (22:32)
[2019-05-25] MEDS: diphenhydrAMINE 25 MG CAP PO PRN (22:32)
[2019-05-26 04:46] LABS: Hemoglobin 9.5 gm/dl (11.8-15.2); Mean Corpuscular HGB Conc 33 % (32-34); Mean Corpuscular Volume 88 fl (84-94); Platelet Count 460 K/mm3 (140-440); Red Blood Count 3.29 M/mm3 (3.65-5.03); Red Cell Distribution Width 14.1 % (13.2-15.2)
[2019-05-26 05:08] LABS: Calcium 7.8 mg/dL (8.4-10.2)
[2019-05-26] MEDS: HEPARIN 5,000 UNIT/1 ML VIAL SUB-Q SCH ×3 (08:20→21:25)
[2019-05-26] MEDS: CEFEPIME/NS 2 GM/100 ML 2 GM/100 ML BAG IV SCH ×2 (08:22→15:45)
[2019-05-26] MEDS: diphenhydrAMINE 25 MG CAP PO PRN ×2 (11:32→20:48)
[2019-05-26] MEDS: TRIAMCINOLONE 0.1% CREAM 15 GM TP SCH ×2 (12:34→21:27)
--- NOTE | 2019-05-26 13:59 | Consultation ---
History of Present Illness - Reason for Consult Consult date: 05/26/19 - History of Present Illness 88 yo M PMHx dementia, CVA, CKD admitted to the hospital after being found to have an altered mental status. He lives at home with his , who noticed that he was altered from his baseline mental status. He was also noted to have cough and fevers for 3 days prior to admission. He was not in any distress on admission and was admitted to the floors. He was found to be febrile to 102.85 on admission but has been mostly afebrile since then. His white count is 17. He is currently receiving cefepime. Blood and urine cultures are NGTD. No other concerns at this time. Imaging personally reviewed: CXR: no acute infectious abnormality. Review of Systems: Bold if positive, otherwise negative General: fevers, chills, rigors HEENT: visual disturbance, diplopia, eye pain Respiratory: cough, sputum, hemoptysis, shortness of breath Cardiovascular: chest pain, syncope Gastrointestinal: nausea, vomiting, diarrhea, abdominal pain Genitourinary: dysuria, hematuria, flank pain Musculoskeletal: neck pain, back pain, joint pain, edema Neurologic: headaches, seizures Hematologic: easy bruising or bleeding Endocrine: night sweats, acute weight loss Skin: rash, jaundice, redness Psychiatric: suicidal, homicidal ideation Past History Past Medical History: other (As noted in HPI) Past Surgical History: Other (Unable to obtain) Social history: other (Unable to obtain) Family history: other (Unable to obtain) Medications and Allergies Allergies Allergy/AdvReac Type Severity Reaction Status Date / Time No Known Allergies Allergy Verified 09/17/18 18:56 Home Medications Medication Instructions Recorded Confirmed Last Taken Type levETIRAcetam [Keppra TAB] 250 mg PO BID #60 tablet 09/17/18 05/22/19 Unknown Rx Aspirin 325 mg PO ONCE 05/22/19 05/22/19 Unknown History Doxepin [SINEquan] 10 mg PO QHS 05/22/19 05/22/19 Unknown History Loratadine 10 mg PO DAILY 05/22/19 05/22/19 Unknown History Sennosides/Docusate [Senokot S] 2 each PO QHS 05/22/19 05/22/19 Unknown History amLODIPine [Norvasc] 5 mg PO DAILY 05/22/19 05/22/19 Unknown History hydrOXYzine HCL [Atarax] 25 mg PO TID 05/22/19 05/22/19 Unknown History lisinopriL [Zestril] 20 mg PO QDAY 05/22/19 05/22/19 Unknown History Active Meds: Active Medications Acetaminophen (Tylenol) 650 mg PO Q4H PRN PRN Reason: Pain MILD(1-3)/Fever >100.5/FERNANDES Last Admin: 05/25/19 22:32 Dose: 650 mg Documented by: Diphenhydramine HCl (Benadryl) 25 mg PO Q6H PRN PRN Reason: Itching Last Admin: 05/26/19 11:32 Dose: 25 mg Documented by: Heparin Sodium (Porcine) (Heparin) 5,000 unit SUB-Q Q12HR [facility] Last Admin: 05/26/19 08:20 Dose: 5,000 unit Documented by: Cefepime HCl (Cefepime/Ns 2 Gm/100 Ml) 2 gm in 100 mls @ 200 mls/hr IV Q24HR LILI; Protocol Last Admin: 05/26/19 08:22 Dose: 200 mls/hr Documented by: Dextrose (D5w) 1,000 mls @ 75 mls/hr IV DIRECT LILI Last Admin: 05/24/19 10:18 Dose: 75 mls/hr Documented by: Ondansetron HCl (Zofran) 4 mg IV Q8H PRN PRN Reason: Nausea And Vomiting Last Admin: 05/24/19 12:21 Dose: 4 mg Documented by: Sodium Chloride (Sodium Chloride Flush Syringe 10 Ml) 10 ml IV BID [facility] Last Admin: 05/26/19 11:31 Dose: 10 ml Documented by: Sodium Chloride (Sodium Chloride Flush Syringe 10 Ml) 10 ml IV PRN PRN PRN Reason: LINE FLUSH Triamcinolone Acetonide (Kenalog) 1 applic TP BID [facility] Last Admin: 05/26/19 12:34 Dose: 1 applic Documented by: Physical Examination - Physical Exam Narrative exam: Physical Exam: Constitutional: Alert, pleasantly confused. No acute distress Head, Ears, Nose: Normocephalic, atraumatic. External ears, nose normal Eyes: Conjunctivae/corneas clear. No icterus. No ptosis. Neck: Supple, no meningeal signs Oral: dentition fair, no thrush Cardiovascular: S1, S2 normal. Respiratory: Good air entry, clear to auscultation bilaterally GI: Soft, non-tender; bowel sounds normal. No peritoneal signs. Musculoskeletal: No pedal edema, no cyanosis. Skin: Generalized rash over back+buttocks. Hem/Lymphatic: No palpable cervical or supraclavicular nodes. No lymphangitis Psych: Mood ok. Affect normal Neurological: Awake, alert, disoriented. No gross abnormality - Constitutional Vitals: Vital Signs Temp Pulse Resp BP Pulse Ox 97.4 F L 77 20 126/66 97 05/26/19 12:33 05/26/19 12:33 05/26/19 12:33 05/26/19 12:33 05/26/19 12:33 Temperature -Last 24 Hours Temperature 97.4 F Temperature 98.3 F Temperature 98.3 F Temperature 98.0 F Results - Labs CBC & Chem 7: 05/26/19 03:40 05/26/19 03:40 Labs: Abnormal lab results 05/26/19 05/26/19 Range/Units 03:40 03:40 WBC 17.6 H (4.5-11.0) K/mm3 RBC 3.29 L (3.65-5.03) M/mm3 Hgb 9.5 L (11.8-15.2) gm/dl Hct 29.0 L (35.5-45.6) % Plt Count 460 H (140-440) K/mm3 Sodium 149 H (137-145) mmol/L Chloride 117.8 H (98-107) mmol/L Carbon Dioxide 21 L (22-30) mmol/L BUN 24 H (9-20) mg/dL Creatinine 2.0 H (0.8-1.5) mg/dL Glucose 107 H (75-100) mg/dL Calcium 7.8 L (8.4-10.2) mg/dL Assessment and Plan Cultures: 05/21/2019 urine cultures: no growth 05/21/2019 blood cultures: pending 05/23/2019 urine cultures: pending MRSA swab: negative A&P: 88 yo M PMhx dementia, CKD, CVA admitted with altered mental status. #SIRS: presents on admission with fever and leukocytosis. Unclear etiology at this point, had mild pyuria on UA however cultures have been negative. Blood c ultures negative as well. CXR without focal abnormality. Recommend ruling out flu given fevers, cough. Has significant eczema over his back and buttocks, with probable superinfection. #Cellulitis: White count not responding to cefepime. Patient unlikely to have Pseudomonas at this point, recommend switching to Unasyn to add anaerobic coverage. #Pyuria: neglible white cells in urine, cultures negative #CKD: renally dose antibiotics #Dementia Recommendations: - stop cefepime - start Unasyn 3g q8h renally dosed - ordered flu swab Thank you for the consult, will continue to follow Aidee Sanches MD [facility] M: [phone] O: [phone] F: [phone]
[2019-05-26] MEDS: ACETAMINOPHEN 325 MG TAB PO PRN (20:48)
[2019-05-26] MEDS: DEXTROSE 5% IN WATER 1,000 ML IV SCH (20:55)
[2019-05-26] MEDS: AMPICILLIN/SULBACTA 3GM/100ML 3 GM/100 ML BAG IV SCH (21:25)
[2019-05-27 04:26] LABS: Calcium 7.9 mg/dL (8.4-10.2)
[2019-05-27 05:51] LABS: Hematocrit 29.4 % (35.5-45.6); Hemoglobin 9.6 gm/dl (11.8-15.2); Mean Corpuscular HGB Conc 33 % (32-34); Mean Corpuscular Volume 87 fl (84-94); Platelet Count 466 K/mm3 (140-440); Red Blood Count 3.39 M/mm3 (3.65-5.03); Red Cell Distribution Width 13.9 % (13.2-15.2)
[2019-05-27] MEDS: DEXTROSE 5% IN WATER 1,000 ML IV SCH (06:49)
[2019-05-27] MEDS: AMPICILLIN/SULBACTA 3GM/100ML 3 GM/100 ML BAG IV SCH (09:53)
[2019-05-27] MEDS: TRIAMCINOLONE 0.1% CREAM 15 GM TP SCH ×2 (09:53→22:42)
[2019-05-27] MEDS: HEPARIN 5,000 UNIT/1 ML VIAL SUB-Q SCH ×2 (09:54→22:42)
[2019-05-27] MEDS: diphenhydrAMINE 25 MG CAP PO PRN (12:48)
--- NOTE | 2019-05-27 13:52 | Progress Note ---
Assessment and Plan Cultures: 05/21/2019 urine cultures: no growth 05/21/2019 blood cultures: pending 05/23/2019 urine cultures: pending MRSA swab: negative A&P: 88 yo M PMhx dementia, CKD, CVA admitted with altered mental status. #SIRS: presents on admission with fever and leukocytosis. Unclear etiology at this point, had mild pyuria on UA however cultures have been negative. Blood cultures negative as well. CXR without focal abnormality. Recommend ruling out flu given fevers, cough. Has significant eczema over his back and buttocks, with probable superinfection. #Cellulitis: Change to cefazolin #Pyuria: neglible white cells in urine, cultures negative #CKD: renally dose antibiotics #Dementia Recommendations: - stop Unasyn - start cefazolin/Flagyl. - follow up flu swab Thank you for the consult, will continue to follow Aidee Sanches MD [facility] [place] M: [phone] O: [phone] F: [phone] Subjective Date of service: 05/27/19 Interval history: Afebrile, persistently elevated white count. No new complaints. Objective - Exam Narrative Exam: Physical Exam: Constitutional: Alert, pleasantly confused. No acute distress Head, Ears, Nose: Normocephalic, atraumatic. External ears, nose normal Eyes: Conjunctivae/corneas clear. No icterus. No ptosis. Oral: dentition fair, no thrush Cardiovascular: S1, S2 normal. Respiratory: Good air entry, clear to auscultation bilaterally GI: Soft, non-tender; bowel sounds normal. No peritoneal signs. Musculoskeletal: No pedal edema, no cyanosis. Skin: Generalized redness over back+buttocks with diffuse dry skin. Hem/Lymphatic: No palpable cervical or supraclavicular nodes. No lymphangitis Psych: Mood ok. Affect normal Neurological: Awake, alert, disoriented. No gross abnormality - Constitutional Vitals: Vital Signs Temp Pulse Resp BP Pulse Ox 98.2 F 67 20 141/73 96 05/27/19 07:51 05/27/19 07:51 05/27/19 10:00 05/27/19 07:51 05/27/19 08:33 Temperature -Last 24 Hours Temperature 98.2 F Temperature 99.0 F Temperature 98.7 F - Labs CBC & Chem 7: 05/27/19 05:16 05/27/19 03:34 Labs: Abnormal lab results 05/27/19 05/27/19 Range/Units 03:34 05:16 WBC 20.1 H (4.5-11.0) K/mm3 RBC 3.39 L (3.65-5.03) M/mm3 Hgb 9.6 L (11.8-15.2) gm/dl Hct 29.4 L (35.5-45.6) % Plt Count 466 H (140-440) K/mm3 Chloride 113.3 H (98-107) mmol/L Carbon Dioxide 18 L (22-30) mmol/L BUN 23 H (9-20) mg/dL Creatinine 1.8 H (0.8-1.5) mg/dL Glucose 110 H (75-100) mg/dL Calcium 7.9 L (8.4-10.2) mg/dL
[2019-05-27] MEDS ORDERED: ceFAZolin/STERILE WATER 2 GM/20 ML SYRINGE IV SCH (14:00)
--- NOTE | 2019-05-27 15:59 | Progress Note ---
Assessment and Plan Assessment and plan: Toxic metabolic encephalopathy -Multifactorial, sepsis, UTI, cellulitis -neuro checks -Continue supportive care Sepsis -Persistent leukocytosis -Consult ID -Continue IV Abx -Cultures pending -Continue supportive care CKD -Patient at baseline. Creatinine September 2018 1.9. -Avoid nephrotoxic agents -Renal dose all meds -strict I/O, -monitor uop q shift, Hypernatremia -Start D5W IV fluids Acute cystitis -IV antibiotics continued -Culture pending -IV fluids Vomiting CXR done neg Bilateral upper ext swelling Get doppler US Dementia -Reorient as needed -Supportive care -Continue home meds once reconciled Cellulitis buttocks -Wound care consulted -On IV ABX DVT prophylaxis -SCDs bilateral extremities -Heparin subcutanous History Interval history: Vomiting resolved Hospitalist Physical - Physical exam Narrative exam: GEN: Not in acute distress, lying in bed, HEENT: Normocephalic, atraumatic, Neck: supple, No JVD Lungs: Clear to auscultation bilat, no wheeze, heart;S1 and S2 reg, no murmurs, rubs or gallop Abd:soft, non tender, normal bowel sounds Ext: Swelling both upper ext, No edema, no clubbing, no cyanosis Neuro: Awake,alert, sadrum: eruythema buttocks, eczematous rash on buttocks,back - Constitutional Vitals: Temp Pulse Resp BP Pulse Ox 97.4 F L 103 H 18 134/78 98 05/27/19 13:20 05/27/19 13:20 05/27/19 13:20 05/27/19 13:20 05/27/19 13:20 General appearance: Present: no acute distress Results - Labs CBC & Chem 7: 05/27/19 05:16 05/27/19 03:34 Labs: Laboratory Last Values WBC 20.1 K/mm3 (4.5-11.0) H 05/27/19 05:16 RBC 3.39 M/mm3 (3.65-5.03) L 05/27/19 05:16 Hgb 9.6 gm/dl (11.8-15.2) L 05/27/19 05:16 Hct 29.4 % (35.5-45.6) L 05/27/19 05:16 MCV 87 fl (84-94) 05/27/19 05:16 MCH 28 pg (28-32) 05/27/19 05:16 MCHC 33 % (32-34) 05/27/19 05:16 RDW 13.9 % (13.2-15.2) 05/27/19 05:16 Plt Count 466 K/mm3 (140-440) H 05/27/19 05:16 Lymph % (Auto) 6.8 % (13.4-35.0) L 05/21/19 22:56 [place] % (Auto) 10.9 % (0.0-7.3) H 05/21/19 22:56 Eos % (Auto) 9.2 % (0.0-4.3) H 05/21/19 22:56 Baso % (Auto) 1.1 % (0.0-1.8) 05/21/19 22:56 Lymph # 1.1 K/mm3 (1.2-5.4) L 05/21/19 22:56 [place] # 1.8 K/mm3 (0.0-0.8) H 05/21/19 22:56 Eos # 1.5 K/mm3 (0.0-0.4) H 05/21/19 22:56 Baso # 0.2 K/mm3 (0.0-0.1) H 05/21/19 22:56 Add Manual Diff Complete 05/25/19 09:28 Total Counted 100 05/25/19 09:28 Seg Neutrophils % 72.0 % (40.0-70.0) H 05/21/19 22:56 Seg Neuts % (Manual) 91.0 % (40.0-70.0) H 05/25/19 09:28 Band Neutrophils % 0 % 05/25/19 09:28 Lymphocytes % (Manual) 2.0 % (13.4-35.0) L 05/25/19 09:28 Reactive Lymphs % (Man) 0 % 05/25/19 09:28 Monocytes % (Manual) 3.0 % (0.0-7.3) 05/25/19 09:28 Eosinophils % (Manual) 4.0 % (0.0-4.3) 05/25/19 09:28 Basophils % (Manual) 0 % (0.0-1.8) 05/25/19 09:28 Metamyelocytes % 0 % 05/25/19 09:28 Myelocytes % 0 % 05/25/19 09:28 Promyelocytes % 0 % 05/25/19 09:28 Blast Cells % 0 % 05/25/19 09:28 Nucleated RBC % Not Reportable 05/25/19 09:28 Seg Neutrophils # 11.6 K/mm3 (1.8-7.7) H 05/21/19 22:56 Seg Neutrophils # Man 17.6 K/mm3 (1.8-7.7) H 05/25/19 09:28 Band Neutrophils # 0.0 K/mm3 05/25/19 09:28 Lymphocytes # (Manual) 0.4 K/mm3 (1.2-5.4) L 05/25/19 09:28 Abs React Lymphs (Man) 0.0 K/mm3 05/25/19 09:28 Monocytes # (Manual) 0.6 K/mm3 (0.0-0.8) 05/25/19 09:28 Eosinophils # (Manual) 0.8 K/mm3 (0.0-0.4) H 05/25/19 09:28 Basophils # (Manual) 0.0 K/mm3 (0.0-0.1) 05/25/19 09:28 Metamyelocytes # 0.0 K/mm3 05/25/19 09:28 Myelocytes # 0.0 K/mm3 05/25/19 09:28 Promyelocytes # 0.0 K/mm3 05/25/19 09:28 Blast Cells # 0.0 K/mm3 05/25/19 09:28 WBC Morphology Not Reportable 05/25/19 09:28 Hypersegmented Neuts Not Reportable 05/25/19 09:28 Hyposegmented Neuts Not Reportable 05/25/19 09:28 Hypogranular Neuts Not Reportable 05/25/19 09:28 Smudge Cells Not Reportable 05/25/19 09:28 Toxic Granulation Not Reportable 05/25/19 09:28 Toxic Vacuolation Not Reportable 05/25/19 09:28 Dohle Bodies Not Reportable 05/25/19 09:28 Pelger-Huet Anomaly Not Reportable 05/25/19 09:28 Laura Rods Not Reportable 05/25/19 09:28 Platelet Estimate Consistent w auto 05/25/19 09:28 Clumped Platelets Not Reportable 05/25/19 09:28 Plt Clumps, EDTA Not Reportable 05/25/19 09:28 Large Platelets Not Reportable 05/25/19 09:28 Giant Platelets Not Reportable 05/25/19 09:28 Platelet Satelliting Not Reportable 05/25/19 09:28 Plt Morphology Comment Not Reportable 05/25/19 09:28 RBC Morphology Not Reportable 05/25/19 09:28 Dimorphic RBCs Not Reportable 05/25/19 09:28 Polychromasia Few 05/25/19 09:28 Hypochromasia Not Reportable 05/25/19 09:28 Poikilocytosis Not Reportable 05/25/19 09:28 Anisocytosis Not Reportable 05/25/19 09:28 Microcytosis Not Reportable 05/25/19 09:28 Macrocytosis Not Reportable 05/25/19 09:28 Spherocytes Not Reportable 05/25/19 09:28 Pappenheimer Bodies Not Reportable 05/25/19 09:28 Sickle Cells Not Reportable 05/25/19 09:28 Target Cells Few 05/25/19 09:28 Tear Drop Cells Not Reportable 05/25/19 09:28 Ovalocytes Not Reportable 05/25/19 09:28 Helmet Cells Not Reportable 05/25/19 09:28 [place] Bodies Not Reportable 05/25/19 09:28 [place] Rings Not Reportable 05/25/19 09:28 [place] Cells Not Reportable 05/25/19 09:28 Bite Cells Not Reportable 05/25/19 09:28 Crenated Cell Not Reportable 05/25/19 09:28 Elliptocytes Not Reportable 05/25/19 09:28 Acanthocytes (Spur) Not Reportable 05/25/19 09:28 Rouleaux Not Reportable 05/25/19 09:28 Hemoglobin C Crystals Not Reportable 05/25/19 09:28 Schistocytes Not Reportable 05/25/19 09:28 Malaria parasites Not Reportable 05/25/19 09:28 Jv Bodies Not Reportable 05/25/19 09:28 Hem Pathologist Commnt No 05/25/19 09:28 Sodium 145 mmol/L (137-145) 05/27/19 03:34 Potassium 4.5 mmol/L (3.6-5.0) 05/27/19 03:34 Chloride 113.3 mmol/L (98-107) H 05/27/19 03:34 Carbon Dioxide 18 mmol/L (22-30) L 05/27/19 03:34 Anion Gap 18 mmol/L 05/27/19 03:34 BUN 23 mg/dL (9-20) H 05/27/19 03:34 Creatinine 1.8 mg/dL (0.8-1.5) H 05/27/19 03:34 Estimated GFR 44 ml/min 05/27/19 03:34 BUN/Creatinine Ratio 13 % 05/27/19 03:34 Glucose 110 mg/dL (75-100) H 05/27/19 03:34 POC Glucose 78 (70-105) 05/25/19 12:05 Lactic Acid 1.20 mmol/L (0.7-2.0) 05/22/19 09:24 Calcium 7.9 mg/dL (8.4-10.2) L 05/27/19 03:34 Total Bilirubin 0.20 mg/dL (0.1-1.2) 05/21/19 22:56 AST 15 units/L (5-40) 05/21/19 22:56 ALT 7 units/L (7-56) 05/21/19 22:56 Alkaline Phosphatase 69 units/L (35-129) 05/21/19 22:56 Troponin T 0.021 ng/mL (0.00-0.029) 05/21/19 22:56 Total Protein 6.9 g/dL (6.3-8.2) 05/21/19 22:56 Albumin 2.4 g/dL (3.9-5) L 05/21/19 22:56 Albumin/Globulin Ratio 0.5 % 05/21/19 22:56 Urine Color Yellow (Yellow) 05/21/19 Unknown Urine Turbidity Slightly-cloudy (Clear) 05/21/19 Unknown Urine pH 5.0 (5.0-7.0) 05/21/19 Unknown Ur Specific [place] 1.013 (1.003-1.030) 05/21/19 Unknown Urine Protein <15 mg/dl mg/dL (Negative) 05/21/19 Unknown Urine Glucose (UA) Neg mg/dL (Negative) 05/21/19 Unknown Urine Ketones Neg mg/dL (Negative) 05/21/19 Unknown Urine Blood Sm (Negative) 05/21/19 Unknown Urine Nitrite Neg (Negative) 05/21/19 Unknown Urine Bilirubin Neg (Negative) 05/21/19 Unknown Urine Urobilinogen < 2.0 mg/dL (<2.0) 05/21/19 Unknown Ur Leukocyte Esterase Sm (Negative) 05/21/19 Unknown Urine WBC (Auto) 19.0 /HPF (0.0-6.0) H 05/21/19 Unknown Urine RBC (Auto) 4.0 /HPF (0.0-6.0) 05/21/19 Unknown U Epithel Cells (Auto) < 1.0 /HPF (0-13.0) 05/21/19 Unknown Urine Bacteria (Auto) 1+ /HPF (Negative) 05/21/19 Unknown Hyaline Casts 1 /LPF 05/21/19 Unknown Urine Mucus Few /HPF 05/21/19 Unknown Blood Type O POSITIVE 05/22/19 02:30 Antibody Screen Negative 05/22/19 02:30 Active Medications - Current Medications Current Medications: Generic Name Dose Route Start Last Admin Trade Name Freq PRN Reason Stop Dose Admin Acetaminophen 650 mg 05/22/19 00:43 05/26/19 20:48 Tylenol PO 650 mg Q4H PRN Administration Pain MILD(1-3)/Fever >100.5/FERNANDES Diphenhydramine HCl 25 mg 05/22/19 18:44 05/27/19 12:48 Benadryl PO 25 mg Q6H PRN Administration Itching Heparin Sodium (Porcine) 5,000 unit 05/22/19 10:00 05/27/19 09:54 Heparin SUB-Q 5,000 unit Q12HR LILI Administration Dextrose 1,000 mls @ 75 mls/hr 05/24/19 09:00 05/27/19 06:49 D5w IV 75 mls/hr DIRECT LILI Administration Metronidazole 500 mg in 100 mls @ 100 mls/hr 05/27/19 14:00 Flagyl 500 Mg/100 Ml IV Q8HR LILI Protocol Cefazolin Sodium 2 gm/ Sodium 100 mls @ 200 mls/hr 05/27/19 15:00 Chloride IV Q8HR LILI Ondansetron HCl 4 mg 05/22/19 00:43 05/24/19 12:21 Zofran IV 4 mg Q8H PRN Administration Nausea And Vomiting Sodium Chloride 10 ml 05/22/19 10:00 05/27/19 09:54 Sodium Chloride Flush Syringe 10 Ml IV 10 ml BID LILI Administration Sodium Chloride 10 ml 05/22/19 00:43 Sodium Chloride Flush Syringe 10 Ml IV PRN PRN LINE FLUSH Triamcinolone Acetonide 1 applic 05/24/19 22:00 05/27/19 09:53 Kenalog TP 1 applic BID LILI Administration Nutrition/Malnutrition Assess - Dietary Evaluation Nutrition/Malnutrition Findings: Nutrition Notes Start: 05/22/19 11:12 Freq: Status: Active Protocol: Document 05/27/19 12:04 CW (Rec: 05/27/19 12:17 CW [id number]) Co-Sign 05/27/19 12:04 LP Nutrition Notes Initial or Follow up Reassessment Current Diagnosis CKD(stage I-IV),Sepsis, Hypertension,Stroke Other Pertinent Diagnosis AMS, dementia, Acute Metabolic Encephalopathy, wounds Current Diet Regular Pureed Diet Labs/Tests BUN 23 Cr 1.8 BG 110 Pertinent Medications D5w at 75 ml/hr Height 5 ft 6 in Weight 71.3 kg Usual Body Weight 65.771 kg [place] Body Weight (kg) 64.54 BMI 25.3 Intake Prior to Admission Good Weight Status Overweight Subjective/Other Information F/U PO/ONS need. Diet advanced to pureed with thin liquids via [employer]. Pt denied offer for Saurabh supplement. Per RN notes , pt had an instance of vomiting. Pt states that he is tolerating pureed diet. Per charts pt ate 100 % meals yesterday and 50% breakfast today. Percent of energy/protein needs met: 100%/100% Burn Absent Trauma Absent GI Symptoms None Food Allergy No Current % PO Good (75-100%) Minimum of two criteria No Body Fat Depletion Mild depletion (non-severe) #1 Nutrition Diagnosis Increased nutrient needs ( specify in comment below) Comments: Protein Diagnosis Progress(for reassessment Continues documentation) Is patient on ventilator? No Is Patient Ambulatory and/or Out of Bed No REE-([place]-confined to bed) 1610.304 Calculation Used for Recommendations [facility] Additional Notes Protein needs: 62-117 g/day (0 .8-1.5 g/kg/day) CKD and wound healing Fluid needs: 1 ml/kcal or per MD Nutrition Intervention Change Diet Order: Continue Pureed diet with thin liquids Goal #1 Continue to meet at least 75% of energy and protein needs Anticipated Discharge Needs: Pureed Diet Follow-Up By: 06/01/19 Additional Comments F/U for stable PO intakes
[2019-05-27] MEDS: metroNIDAZOLE/NS 500 MG/100 ML 500 MG/100 ML BAG IV SCH ×2 (16:01→22:38)
--- NOTE | 2019-05-27 16:08 | Progress Note ---
Assessment and Plan Assessment and plan: Toxic metabolic encephalopathy -Multifactorial, sepsis, UTI, cellulitis -neuro checks -Continue supportive care Sepsis -Persistent leukocytosis -Consulted ID, discussed with Dr. Sanches -Now started on Cefaxzolin and Flagyl. Unasyn discontinued -Continue supportive care CKD -Patient at baseline. Creatinine September 2018 1.9. -Avoid nephrotoxic agents -Renal dose all meds -strict I/O, -monitor uop q shift, Hypernatremia -Start D5W IV fluids Acute cystitis -IV antibiotics continued -Culture pending -IV fluids Vomiting CXR done neg Bilateral upper ext swelling Get doppler US Dementia -Reorient as needed -Supportive care -Continue home meds once reconciled Cellulitis buttocks -Wound care consulted -On IV ABX DVT prophylaxis -SCDs bilateral extremities -Heparin subcutanous 05/[address] Sanches started Cefazolin and Flagyl. Stopped Unasyn. History Interval history: Vomiting resolved still has redness buttocks Hospitalist Physical - Physical exam Narrative exam: GEN: Not in acute distress, lying in bed, HEENT: Normocephalic, atraumatic, Neck: supple, No JVD Lungs: Clear to auscultation bilat, no wheeze, heart;S1 and S2 reg, no murmurs, rubs or gallop Abd:soft, non tender, normal bowel sounds Ext: Swelling both upper ext, No edema, no clubbing, no cyanosis Neuro: Awake,alert, sadrum: eruythema buttocks, eczematous rash on buttocks,back - Constitutional Vitals: Temp Pulse Resp BP Pulse Ox 97.4 F L 103 H 18 134/78 98 05/27/19 13:20 05/27/19 13:20 05/27/19 13:20 05/27/19 13:20 05/27/19 13:20 General appearance: Present: no acute distress Results - Labs CBC & Chem 7: 05/27/19 05:16 05/27/19 03:34 Labs: Laboratory Last Values WBC 20.1 K/mm3 (4.5-11.0) H 05/27/19 05:16 RBC 3.39 M/mm3 (3.65-5.03) L 05/27/19 05:16 Hgb 9.6 gm/dl (11.8-15.2) L 05/27/19 05:16 Hct 29.4 % (35.5-45.6) L 05/27/19 05:16 MCV 87 fl (84-94) 05/27/19 05:16 MCH 28 pg (28-32) 05/27/19 05:16 MCHC 33 % (32-34) 05/27/19 05:16 RDW 13.9 % (13.2-15.2) 05/27/19 05:16 Plt Count 466 K/mm3 (140-440) H 05/27/19 05:16 Lymph % (Auto) 6.8 % (13.4-35.0) L 05/21/19 22:56 [place] % (Auto) 10.9 % (0.0-7.3) H 05/21/19 22:56 Eos % (Auto) 9.2 % (0.0-4.3) H 05/21/19 22:56 Baso % (Auto) 1.1 % (0.0-1.8) 05/21/19 22:56 Lymph # 1.1 K/mm3 (1.2-5.4) L 05/21/19 22:56 [place] # 1.8 K/mm3 (0.0-0.8) H 05/21/19 22:56 Eos # 1.5 K/mm3 (0.0-0.4) H 05/21/19 22:56 Baso # 0.2 K/mm3 (0.0-0.1) H 05/21/19 22:56 Add Manual Diff Complete 05/25/19 09:28 Total Counted 100 05/25/19 09:28 Seg Neutrophils % 72.0 % (40.0-70.0) H 05/21/19 22:56 Seg Neuts % (Manual) 91.0 % (40.0-70.0) H 05/25/19 09:28 Band Neutrophils % 0 % 05/25/19 09:28 Lymphocytes % (Manual) 2.0 % (13.4-35.0) L 05/25/19 09:28 Reactive Lymphs % (Man) 0 % 05/25/19 09:28 Monocytes % (Manual) 3.0 % (0.0-7.3) 05/25/19 09:28 Eosinophils % (Manual) 4.0 % (0.0-4.3) 05/25/19 09:28 Basophils % (Manual) 0 % (0.0-1.8) 05/25/19 09:28 Metamyelocytes % 0 % 05/25/19 09:28 Myelocytes % 0 % 05/25/19 09:28 Promyelocytes % 0 % 05/25/19 09:28 Blast Cells % 0 % 05/25/19 09:28 Nucleated RBC % Not Reportable 05/25/19 09:28 Seg Neutrophils # 11.6 K/mm3 (1.8-7.7) H 05/21/19 22:56 Seg Neutrophils # Man 17.6 K/mm3 (1.8-7.7) H 05/25/19 09:28 Band Neutrophils # 0.0 K/mm3 05/25/19 09:28 Lymphocytes # (Manual) 0.4 K/mm3 (1.2-5.4) L 05/25/19 09:28 Abs React Lymphs (Man) 0.0 K/mm3 05/25/19 09:28 Monocytes # (Manual) 0.6 K/mm3 (0.0-0.8) 05/25/19 09:28 Eosinophils # (Manual) 0.8 K/mm3 (0.0-0.4) H 05/25/19 09:28 Basophils # (Manual) 0.0 K/mm3 (0.0-0.1) 05/25/19 09:28 Metamyelocytes # 0.0 K/mm3 05/25/19 09:28 Myelocytes # 0.0 K/mm3 05/25/19 09:28 Promyelocytes # 0.0 K/mm3 05/25/19 09:28 Blast Cells # 0.0 K/mm3 05/25/19 09:28 WBC Morphology Not Reportable 05/25/19 09:28 Hypersegmented Neuts Not Reportable 05/25/19 09:28 Hyposegmented Neuts Not Reportable 05/25/19 09:28 Hypogranular Neuts Not Reportable 05/25/19 09:28 Smudge Cells Not Reportable 05/25/19 09:28 Toxic Granulation Not Reportable 05/25/19 09:28 Toxic Vacuolation Not Reportable 05/25/19 09:28 Dohle Bodies Not Reportable 05/25/19 09:28 Pelger-Huet Anomaly Not Reportable 05/25/19 09:28 Laura Rods Not Reportable 05/25/19 09:28 Platelet Estimate Consistent w auto 05/25/19 09:28 Clumped Platelets Not Reportable 05/25/19 09:28 Plt Clumps, EDTA Not Reportable 05/25/19 09:28 Large Platelets Not Reportable 05/25/19 09:28 Giant Platelets Not Reportable 05/25/19 09:28 Platelet Satelliting Not Reportable 05/25/19 09:28 Plt Morphology Comment Not Reportable 05/25/19 09:28 RBC Morphology Not Reportable 05/25/19 09:28 Dimorphic RBCs Not Reportable 05/25/19 09:28 Polychromasia Few 05/25/19 09:28 Hypochromasia Not Reportable 05/25/19 09:28 Poikilocytosis Not Reportable 05/25/19 09:28 Anisocytosis Not Reportable 05/25/19 09:28 Microcytosis Not Reportable 05/25/19 09:28 Macrocytosis Not Reportable 05/25/19 09:28 Spherocytes Not Reportable 05/25/19 09:28 Pappenheimer Bodies Not Reportable 05/25/19 09:28 Sickle Cells Not Reportable 05/25/19 09:28 Target Cells Few 05/25/19 09:28 Tear Drop Cells Not Reportable 05/25/19 09:28 Ovalocytes Not Reportable 05/25/19 09:28 Helmet Cells Not Reportable 05/25/19 09:28 [place] Bodies Not Reportable 05/25/19 09:28 [place] Rings Not Reportable 05/25/19 09:28 Gonzalo Cells Not Reportable 05/25/19 09:28 Bite Cells Not Reportable 05/25/19 09:28 Crenated Cell Not Reportable 05/25/19 09:28 Elliptocytes Not Reportable 05/25/19 09:28 Acanthocytes (Spur) Not Reportable 05/25/19 09:28 Rouleaux Not Reportable 05/25/19 09:28 Hemoglobin C Crystals Not Reportable 05/25/19 09:28 Schistocytes Not Reportable 05/25/19 09:28 Malaria parasites Not Reportable 05/25/19 09:28 Jv Bodies Not Reportable 05/25/19 09:28 Hem Pathologist Commnt No 05/25/19 09:28 Sodium 145 mmol/L (137-145) 05/27/19 03:34 Potassium 4.5 mmol/L (3.6-5.0) 05/27/19 03:34 Chloride 113.3 mmol/L (98-107) H 05/27/19 03:34 Carbon Dioxide 18 mmol/L (22-30) L 05/27/19 03:34 Anion Gap 18 mmol/L 05/27/19 03:34 BUN 23 mg/dL (9-20) H 05/27/19 03:34 Creatinine 1.8 mg/dL (0.8-1.5) H 05/27/19 03:34 Estimated GFR 44 ml/min 05/27/19 03:34 BUN/Creatinine Ratio 13 % 05/27/19 03:34 Glucose 110 mg/dL (75-100) H 05/27/19 03:34 POC Glucose 78 (70-105) 05/25/19 12:05 Lactic Acid 1.20 mmol/L (0.7-2.0) 05/22/19 09:24 Calcium 7.9 mg/dL (8.4-10.2) L 05/27/19 03:34 Total Bilirubin 0.20 mg/dL (0.1-1.2) 05/21/19 22:56 AST 15 units/L (5-40) 05/21/19 22:56 ALT 7 units/L (7-56) 05/21/19 22:56 Alkaline Phosphatase 69 units/L (35-129) 05/21/19 22:56 Troponin T 0.021 ng/mL (0.00-0.029) 05/21/19 22:56 Total Protein 6.9 g/dL (6.3-8.2) 05/21/19 22:56 Albumin 2.4 g/dL (3.9-5) L 05/21/19 22:56 Albumin/Globulin Ratio 0.5 % 05/21/19 22:56 Urine Color Yellow (Yellow) 05/21/19 Unknown Urine Turbidity Slightly-cloudy (Clear) 05/21/19 Unknown Urine pH 5.0 (5.0-7.0) 05/21/19 Unknown Ur Specific [place] 1.013 (1.003-1.030) 05/21/19 Unknown Urine Protein <15 mg/dl mg/dL (Negative) 05/21/19 Unknown Urine Glucose (UA) Neg mg/dL (Negative) 05/21/19 Unknown Urine Ketones Neg mg/dL (Negative) 05/21/19 Unknown Urine Blood Sm (Negative) 05/21/19 Unknown Urine Nitrite Neg (Negative) 05/21/19 Unknown Urine Bilirubin Neg (Negative) 05/21/19 Unknown Urine Urobilinogen < 2.0 mg/dL (<2.0) 05/21/19 Unknown Ur Leukocyte Esterase Sm (Negative) 05/21/19 Unknown Urine WBC (Auto) 19.0 /HPF (0.0-6.0) H 05/21/19 Unknown Urine RBC (Auto) 4.0 /HPF (0.0-6.0) 05/21/19 Unknown U Epithel Cells (Auto) < 1.0 /HPF (0-13.0) 05/21/19 Unknown Urine Bacteria (Auto) 1+ /HPF (Negative) 05/21/19 Unknown Hyaline Casts 1 /LPF 05/21/19 Unknown Urine Mucus Few /HPF 05/21/19 Unknown Blood Type O POSITIVE 05/22/19 02:30 Antibody Screen Negative 05/22/19 02:30 Active Medications - Current Medications Current Medications: Generic Name Dose Route Start Last Admin Trade Name Freq PRN Reason Stop Dose Admin Acetaminophen 650 mg 05/22/19 00:43 05/26/19 20:48 Tylenol PO 650 mg Q4H PRN Administration Pain MILD(1-3)/Fever >100.5/FERNANDES Diphenhydramine HCl 25 mg 05/22/19 18:44 05/27/19 12:48 Benadryl PO 25 mg Q6H PRN Administration Itching Heparin Sodium (Porcine) 5,000 unit 05/22/19 10:00 05/27/19 09:54 Heparin SUB-Q 5,000 unit Q12HR LILI Administration Dextrose 1,000 mls @ 75 mls/hr 05/24/19 09:00 05/27/19 06:49 D5w IV 75 mls/hr DIRECT LILI Administration Metronidazole 500 mg in 100 mls @ 100 mls/hr 05/27/19 14:00 05/27/19 16:01 Flagyl 500 Mg/100 Ml IV 100 mls/hr Q8HR LILI Administration Protocol Cefazolin Sodium 2 gm/ Sodium 100 mls @ 200 mls/hr 05/27/19 15:00 05/27/19 16:00 Chloride IV 200 mls/hr Q8HR LILI Administration Ondansetron HCl 4 mg 05/22/19 00:43 05/24/19 12:21 Zofran IV 4 mg Q8H PRN Administration Nausea And Vomiting Sodium Chloride 10 ml 05/22/19 10:00 05/27/19 09:54 Sodium Chloride Flush Syringe 10 Ml IV 10 ml BID LILI Administration Sodium Chloride 10 ml 05/22/19 00:43 Sodium Chloride Flush Syringe 10 Ml IV PRN PRN LINE FLUSH Triamcinolone Acetonide 1 applic 05/24/19 22:00 05/27/19 09:53 Kenalog TP 1 applic BID LILI Administration Nutrition/Malnutrition Assess - Dietary Evaluation Nutrition/Malnutrition Findings: Nutrition Notes Start: 05/22/19 11:12 Freq: Status: Active Protocol: Document 05/27/19 12:04 CW (Rec: 05/27/19 12:17 CW [id number]) Co-Sign 05/27/19 12:04 LP Nutrition Notes Initial or Follow up Reassessment Current Diagnosis CKD(stage I-IV),Sepsis, Hypertension,Stroke Other Pertinent Diagnosis AMS, dementia, Acute Metabolic Encephalopathy, wounds Current Diet Regular Pureed Diet Labs/Tests BUN 23 Cr 1.8 BG 110 Pertinent Medications D5w at 75 ml/hr Height 5 ft 6 in Weight 71.3 kg Usual Body Weight 65.771 kg [place] Body Weight (kg) 64.54 BMI 25.3 Intake Prior to Admission Good Weight Status Overweight Subjective/Other Information F/U PO/ONS need. Diet advanced to pureed with thin liquids via [employer] WORKER. Pt denied offer for Saurabh supplement. Per RN notes , pt had an instance of vomiting. Pt states that he is tolerating pureed diet. Per charts pt ate 100 % meals yesterday and 50% breakfast today. Percent of energy/protein needs met: 100%/100% Burn Absent Trauma Absent GI Symptoms None Food Allergy No Current % PO Good (75-100%) Minimum of two criteria No Body Fat Depletion Mild depletion (non-severe) #1 Nutrition Diagnosis Increased nutrient needs ( specify in comment below) Comments: Protein Diagnosis Progress(for reassessment Continues documentation) Is patient on ventilator? No Is Patient Ambulatory and/or Out of Bed No REE-([facility]-confined to bed) 1474.304 Calculation Used for Recommendations [facility] Additional Notes Protein needs: 62-117 g/day (0 .8-1.5 g/kg/day) CKD and wound healing Fluid needs: 1 ml/kcal or per MD Nutrition Intervention Change Diet Order: Continue Pureed diet with thin liquids Goal #1 Continue to meet at least 75% of energy and protein needs Anticipated Discharge Needs: Pureed Diet Follow-Up By: 06/01/19 Additional Comments F/U for stable PO intakes
[2019-05-28 06:02] LABS: Hematocrit 29.8 % (35.5-45.6); Hemoglobin 9.8 gm/dl (11.8-15.2); Mean Corpuscular HGB Conc 33 % (32-34); Mean Corpuscular Volume 87 fl (84-94); Platelet Count 450 K/mm3 (140-440); Red Blood Count 3.43 M/mm3 (3.65-5.03); Red Cell Distribution Width 13.7 % (13.2-15.2)
[2019-05-28] MEDS: metroNIDAZOLE/NS 500 MG/100 ML 500 MG/100 ML BAG IV SCH ×3 (06:19→22:08)
[2019-05-28] MEDS: HEPARIN 5,000 UNIT/1 ML VIAL SUB-Q SCH ×2 (10:02→22:08)
[2019-05-28] MEDS: TRIAMCINOLONE 0.1% CREAM 15 GM TP SCH ×2 (10:02→22:08)
--- NOTE | 2019-05-28 10:46 | Progress Note ---
Assessment and Plan Assessment and plan: Toxic metabolic encephalopathy -Multifactorial, sepsis, UTI, cellulitis -neuro checks -Continue supportive care Sepsis -Persistent leukocytosis -Consulted ID, discussed with Dr. Sanches -Now started on Cefaxzolin and Flagyl. Unasyn discontinued -Continue supportive care leukocytosis WBC 20.4 today CKD -Patient at baseline. Creatinine September 2018 1.9. -Avoid nephrotoxic agents -Renal dose all meds -strict I/O, -monitor uop q shift, Hypernatremia -Start D5W IV fluids Acute cystitis -IV antibiotics continued -Culture pending -IV fluids Vomiting CXR done neg Bilateral upper ext swelling Get doppler US Dementia -Reorient as needed -Supportive care -Continue home meds once reconciled Cellulitis buttocks -Wound care consulted -On IV ABX DVT prophylaxis -SCDs bilateral extremities -Heparin subcutanous 05/[address] Sanches started Cefazolin and Flagyl. Stopped Unasyn. 05/28 WBC higher today 20.4 so not stable for discharge. I discussed with Dr. Snaches History Interval history: Vomiting resolved still has redness buttocks Hospitalist Physical - Physical exam Narrative exam: GEN: Not in acute distress, lying in bed, HEENT: Normocephalic, atraumatic, Neck: supple, No JVD Lungs: Clear to auscultation bilat, no wheeze, heart;S1 and S2 reg, no murmurs, rubs or gallop Abd:soft, non tender, normal bowel sounds Ext: Swelling both upper ext, No edema, no clubbing, no cyanosis Neuro: Awake,alert, sadrum: erythema buttocks, eczematous rash on buttocks,back - Constitutional Vitals: Temp Pulse Resp BP Pulse Ox 99.2 F 73 18 143/73 98 05/28/19 07:26 05/28/19 07:26 05/28/19 08:18 05/28/19 07:26 05/28/19 07:26 General appearance: Present: no acute distress Results - Labs CBC & Chem 7: 05/28/19 05:40 05/27/19 03:34 Labs: Laboratory Last Values WBC 20.4 K/mm3 (4.5-11.0) H 05/28/19 05:40 RBC 3.43 M/mm3 (3.65-5.03) L 05/28/19 05:40 Hgb 9.8 gm/dl (11.8-15.2) L 05/28/19 05:40 Hct 29.8 % (35.5-45.6) L 05/28/19 05:40 MCV 87 fl (84-94) 05/28/19 05:40 MCH 29 pg (28-32) 05/28/19 05:40 MCHC 33 % (32-34) 05/28/19 05:40 RDW 13.7 % (13.2-15.2) 05/28/19 05:40 Plt Count 450 K/mm3 (140-440) H 05/28/19 05:40 Lymph % (Auto) 6.8 % (13.4-35.0) L 05/21/19 22:56 [place] % (Auto) 10.9 % (0.0-7.3) H 05/21/19 22:56 Eos % (Auto) 9.2 % (0.0-4.3) H 05/21/19 22:56 Baso % (Auto) 1.1 % (0.0-1.8) 05/21/19 22:56 Lymph # 1.1 K/mm3 (1.2-5.4) L 05/21/19 22:56 [place] # 1.8 K/mm3 (0.0-0.8) H 05/21/19 22:56 Eos # 1.5 K/mm3 (0.0-0.4) H 05/21/19 22:56 Baso # 0.2 K/mm3 (0.0-0.1) H 05/21/19 22:56 Add Manual Diff Complete 05/25/19 09:28 Total Counted 100 05/25/19 09:28 Seg Neutrophils % 72.0 % (40.0-70.0) H 05/21/19 22:56 Seg Neuts % (Manual) 91.0 % (40.0-70.0) H 05/25/19 09:28 Band Neutrophils % 0 % 05/25/19 09:28 Lymphocytes % (Manual) 2.0 % (13.4-35.0) L 05/25/19 09:28 Reactive Lymphs % (Man) 0 % 05/25/19 09:28 Monocytes % (Manual) 3.0 % (0.0-7.3) 05/25/19 09:28 Eosinophils % (Manual) 4.0 % (0.0-4.3) 05/25/19 09:28 Basophils % (Manual) 0 % (0.0-1.8) 05/25/19 09:28 Metamyelocytes % 0 % 05/25/19 09:28 Myelocytes % 0 % 05/25/19 09:28 Promyelocytes % 0 % 05/25/19 09:28 Blast Cells % 0 % 05/25/19 09:28 Nucleated RBC % Not Reportable 05/25/19 09:28 Seg Neutrophils # 11.6 K/mm3 (1.8-7.7) H 05/21/19 22:56 Seg Neutrophils # Man 17.6 K/mm3 (1.8-7.7) H 05/25/19 09:28 Band Neutrophils # 0.0 K/mm3 05/25/19 09:28 Lymphocytes # (Manual) 0.4 K/mm3 (1.2-5.4) L 05/25/19 09:28 Abs React Lymphs (Man) 0.0 K/mm3 05/25/19 09:28 Monocytes # (Manual) 0.6 K/mm3 (0.0-0.8) 05/25/19 09:28 Eosinophils # (Manual) 0.8 K/mm3 (0.0-0.4) H 05/25/19 09:28 Basophils # (Manual) 0.0 K/mm3 (0.0-0.1) 05/25/19 09:28 Metamyelocytes # 0.0 K/mm3 05/25/19 09:28 Myelocytes # 0.0 K/mm3 05/25/19 09:28 Promyelocytes # 0.0 K/mm3 05/25/19 09:28 Blast Cells # 0.0 K/mm3 05/25/19 09:28 WBC Morphology Not Reportable 05/25/19 09:28 Hypersegmented Neuts Not Reportable 05/25/19 09:28 Hyposegmented Neuts Not Reportable 05/25/19 09:28 Hypogranular Neuts Not Reportable 05/25/19 09:28 Smudge Cells Not Reportable 05/25/19 09:28 Toxic Granulation Not Reportable 05/25/19 09:28 Toxic Vacuolation Not Reportable 05/25/19 09:28 Dohle Bodies Not Reportable 05/25/19 09:28 Pelger-Huet Anomaly Not Reportable 05/25/19 09:28 Laura Rods Not Reportable 05/25/19 09:28 Platelet Estimate Consistent w auto 05/25/19 09:28 Clumped Platelets Not Reportable 05/25/19 09:28 Plt Clumps, EDTA Not Reportable 05/25/19 09:28 Large Platelets Not Reportable 05/25/19 09:28 Giant Platelets Not Reportable 05/25/19 09:28 Platelet Satelliting Not Reportable 05/25/19 09:28 Plt Morphology Comment Not Reportable 05/25/19 09:28 RBC Morphology Not Reportable 05/25/19 09:28 Dimorphic RBCs Not Reportable 05/25/19 09:28 Polychromasia Few 05/25/19 09:28 Hypochromasia Not Reportable 05/25/19 09:28 Poikilocytosis Not Reportable 05/25/19 09:28 Anisocytosis Not Reportable 05/25/19 09:28 Microcytosis Not Reportable 05/25/19 09:28 Macrocytosis Not Reportable 05/25/19 09:28 Spherocytes Not Reportable 05/25/19 09:28 Pappenheimer Bodies Not Reportable 05/25/19 09:28 Sickle Cells Not Reportable 05/25/19 09:28 Target Cells Few 05/25/19 09:28 Tear Drop Cells Not Reportable 05/25/19 09:28 Ovalocytes Not Reportable 05/25/19 09:28 Helmet Cells Not Reportable 05/25/19 09:28 [place] Bodies Not Reportable 05/25/19 09:28 [place] Rings Not Reportable 05/25/19 09:28 [place] Cells Not Reportable 05/25/19 09:28 Bite Cells Not Reportable 05/25/19 09:28 Crenated Cell Not Reportable 05/25/19 09:28 Elliptocytes Not Reportable 05/25/19 09:28 Acanthocytes (Spur) Not Reportable 05/25/19 09:28 Rouleaux Not Reportable 05/25/19 09:28 Hemoglobin C Crystals Not Reportable 02/11/20 09:28 Schistocytes Not Reportable 05/25/19 09:28 Malaria parasites Not Reportable 05/25/19 09:28 Jv Bodies Not Reportable 05/25/19 09:28 Hem Pathologist Commnt No 05/25/19 09:28 Sodium 145 mmol/L (137-145) 05/27/19 03:34 Potassium 4.5 mmol/L (3.6-5.0) 05/27/19 03:34 Chloride 113.3 mmol/L (98-107) H 05/27/19 03:34 Carbon Dioxide 18 mmol/L (22-30) L 05/27/19 03:34 Anion Gap 18 mmol/L 05/27/19 03:34 BUN 23 mg/dL (9-20) H 05/27/19 03:34 Creatinine 1.8 mg/dL (0.8-1.5) H 05/27/19 03:34 Estimated GFR 44 ml/min 05/27/19 03:34 BUN/Creatinine Ratio 13 % 05/27/19 03:34 Glucose 110 mg/dL (75-100) H 05/27/19 03:34 POC Glucose 78 (70-105) 05/25/19 12:05 Lactic Acid 1.20 mmol/L (0.7-2.0) 05/22/19 09:24 Calcium 7.9 mg/dL (8.4-10.2) L 05/27/19 03:34 Total Bilirubin 0.20 mg/dL (0.1-1.2) 05/21/19 22:56 AST 15 units/L (5-40) 05/21/19 22:56 ALT 7 units/L (7-56) 05/21/19 22:56 Alkaline Phosphatase 69 units/L (35-129) 05/21/19 22:56 Troponin T 0.021 ng/mL (0.00-0.029) 05/21/19 22:56 Total Protein 6.9 g/dL (6.3-8.2) 05/21/19 22:56 Albumin 2.4 g/dL (3.9-5) L 05/21/19 22:56 Albumin/Globulin Ratio 0.5 % 05/21/19 22:56 Urine Color Yellow (Yellow) 05/21/19 Unknown Urine Turbidity Slightly-cloudy (Clear) 05/21/19 Unknown Urine pH 5.0 (5.0-7.0) 05/21/19 Unknown Ur Specific [place] 1.013 (1.003-1.030) 05/21/19 Unknown Urine Protein <15 mg/dl mg/dL (Negative) 05/21/19 Unknown Urine Glucose (UA) Neg mg/dL (Negative) 05/21/19 Unknown Urine Ketones Neg mg/dL (Negative) 05/21/19 Unknown Urine Blood Sm (Negative) 05/21/19 Unknown Urine Nitrite Neg (Negative) 05/21/19 Unknown Urine Bilirubin Neg (Negative) 05/21/19 Unknown Urine Urobilinogen < 2.0 mg/dL (<2.0) 05/21/19 Unknown Ur Leukocyte Esterase Sm (Negative) 05/21/19 Unknown Urine WBC (Auto) 19.0 /HPF (0.0-6.0) H 05/21/19 Unknown Urine RBC (Auto) 4.0 /HPF (0.0-6.0) 05/21/19 Unknown U Epithel Cells (Auto) < 1.0 /HPF (0-13.0) 05/21/19 Unknown Urine Bacteria (Auto) 1+ /HPF (Negative) 05/21/19 Unknown Hyaline Casts 1 /LPF 05/21/19 Unknown Urine Mucus Few /HPF 05/21/19 Unknown Blood Type O POSITIVE 05/22/19 02:30 Antibody Screen Negative 05/22/19 02:30 Active Medications - Current Medications Current Medications: Generic Name Dose Route Start Last Admin Trade Name Freq PRN Reason Stop Dose Admin Acetaminophen 650 mg 05/22/19 00:43 05/26/19 20:48 Tylenol PO 650 mg Q4H PRN Administration Pain MILD(1-3)/Fever >100.5/FERNANDES Diphenhydramine HCl 25 mg 05/22/19 18:44 05/27/19 12:48 Benadryl PO 25 mg Q6H PRN Administration Itching Heparin Sodium (Porcine) 5,000 unit 05/22/19 10:00 05/28/19 10:02 Heparin SUB-Q 5,000 unit Q12HR LILI Administration Dextrose 1,000 mls @ 75 mls/hr 05/24/19 09:00 05/27/19 06:49 D5w IV 75 mls/hr DIRECT LILI Administration Metronidazole 500 mg in 100 mls @ 100 mls/hr 05/27/19 14:00 05/28/19 06:19 Flagyl 500 Mg/100 Ml IV 100 mls/hr Q8HR LILI Administration Protocol Cefazolin Sodium 2 gm/ Sodium 100 mls @ 200 mls/hr 05/28/19 22:00 Chloride IV Q12HR LILI Ondansetron HCl 4 mg 05/22/19 00:43 05/24/19 12:21 Zofran IV 4 mg Q8H PRN Administration Nausea And Vomiting Sodium Chloride 10 ml 05/22/19 10:00 05/28/19 10:03 Sodium Chloride Flush Syringe 10 Ml IV 10 ml BID LILI Administration Sodium Chloride 10 ml 05/22/19 00:43 Sodium Chloride Flush Syringe 10 Ml IV PRN PRN LINE FLUSH Triamcinolone Acetonide 1 applic 05/24/19 22:00 05/28/19 10:02 Kenalog TP 1 applic BID LILI Administration Nutrition/Malnutrition Assess - Dietary Evaluation Nutrition/Malnutrition Findings: Nutrition Notes Start: 05/22/19 11:12 Freq: Status: Active Protocol: Document 05/27/19 12:04 CW (Rec: 05/27/19 12:17 CW [id number]) Co-Sign 05/27/19 12:04 LP Nutrition Notes Initial or Follow up Reassessment Current Diagnosis CKD(stage I-IV),Sepsis, Hypertension,Stroke Other Pertinent Diagnosis AMS, dementia, Acute Metabolic Encephalopathy, wounds Current Diet Regular Pureed Diet Labs/Tests BUN 23 Cr 1.8 BG 110 Pertinent Medications D5w at 75 ml/hr Height 5 ft 6 in Weight 71.3 kg Usual Body Weight 65.771 kg [place] [employer] Body Weight (kg) 64.54 BMI 25.3 Intake Prior to Admission Good Weight Status Overweight Subjective/Other Information F/U PO/ONS need. 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 Pt denied offer for Saurabh supplement. Per RN notes , pt had an instance of vomiting. Pt states that he is tolerating pureed diet. Per charts pt ate 100 % meals yesterday and 50% breakfast today. Percent of energy/protein needs met: 100%/100% Burn Absent Trauma Absent GI Symptoms None Food Allergy No Current % PO Good (75-100%) Minimum of two criteria No Body Fat Depletion Mild depletion (non-severe) #1 Nutrition Diagnosis Increased nutrient needs ( specify in comment below) Comments: Protein Diagnosis Progress(for reassessment Continues documentation) Is patient on ventilator? No Is Patient Ambulatory and/or Out of Bed No REE-([facility]-confined to bed) 0200.304 Calculation Used for Recommendations [facility] Additional Notes Protein needs: 62-117 g/day (0 .8-1.5 g/kg/day) CKD and wound healing Fluid needs: 1 ml/kcal or per MD Nutrition Intervention Change Diet Order: Continue Pureed diet with thin liquids Goal #1 Continue to meet at least 75% of energy and protein needs Anticipated Discharge Needs: Pureed Diet Follow-Up By: 06/01/19 Additional Comments F/U for stable PO intakes
--- NOTE | 2019-05-28 10:53 | Progress Note ---
Assessment and Plan Cultures: 05/21/2019 urine cultures: no growth 05/21/2019 blood cultures: pending 05/23/2019 urine cultures: pending MRSA swab: negative A&P: 88 yo M PMhx dementia, CKD, CVA admitted with altered mental status. #SIRS: presents on admission with fever and leukocytosis. Unclear etiology at this point, had mild pyuria on UA however cultures have been negative. Blood cultures negative as well. CXR without focal abnormality. Recommend ruling out flu given fevers, cough. Has significant eczema over his back and buttocks, with probable superinfection. #Cellulitis: Continue cefazolin #Pyuria: negligible white cells in urine, cultures negative #CKD: renally dose antibiotics #Dementia Recommendations: - continue cefazolin/Flagyl. - follow up flu swab Thank you for the consult, will continue to follow Dr. Haines covering this weekend Aidee Sanches MD [facility] M: [phone] O: [phone] F: [phone] Subjective Date of service: 05/28/19 Interval history: Afebrile, persistently elevated white count. No new complaints, at baseline confusion. denies any symptoms including pain over his buttocks. Objective - Exam Narrative Exam: Physical Exam: Constitutional: Alert, pleasantly confused. No acute distress Cardiovascular: S1, S2 normal. Respiratory: Good air entry, clear to auscultation bilaterally GI: Soft, non-tender; bowel sounds normal. No peritoneal signs. Musculoskeletal: No pedal edema, no cyanosis. Skin: Generalized redness over back+buttocks with diffuse dry skin. Hem/Lymphatic: No palpable cervical or supraclavicular nodes. No lymphangitis Psych: Mood ok. Affect normal Neurological: Awake, alert, disoriented. No gross abnormality - Constitutional Vitals: Vital Signs Temp Pulse Resp BP Pulse Ox 99.2 F 73 18 143/73 98 05/28/19 07:26 05/28/19 07:26 05/28/19 08:18 05/28/19 07:26 05/28/19 07:26 Temperature -Last 24 Hours Temperature 99.2 F Temperature 99.4 F Temperature 100.0 F Temperature 97.4 F - Labs CBC & Chem 7: 05/28/19 05:40 05/27/19 03:34 Labs: Abnormal lab results 05/28/19 Range/Units 05:40 WBC 20.4 H (4.5-11.0) K/mm3 RBC 3.43 L (3.65-5.03) M/mm3 Hgb 9.8 L (11.8-15.2) gm/dl Hct 29.8 L (35.5-45.6) % Plt Count 450 H (140-440) K/mm3
[2019-05-28] MEDS: DEXTROSE 5% IN WATER 1,000 ML IV SCH (18:42)
[2019-05-28] MEDS: diphenhydrAMINE 25 MG CAP PO PRN (23:38)
[2019-05-29] MEDS: metroNIDAZOLE/NS 500 MG/100 ML 500 MG/100 ML BAG IV SCH ×3 (05:35→22:14)
[2019-05-29 06:45] LABS: Hematocrit 28.4 % (35.5-45.6); Hemoglobin 9.4 gm/dl (11.8-15.2); Mean Corpuscular HGB Conc 33 % (32-34); Mean Corpuscular Volume 86 fl (84-94); Platelet Count 423 K/mm3 (140-440)
[2019-05-29] MEDS: HEPARIN 5,000 UNIT/1 ML VIAL SUB-Q SCH ×2 (09:39→22:18)
[2019-05-29] MEDS: TRIAMCINOLONE 0.1% CREAM 15 GM TP SCH ×2 (09:39→22:21)
[2019-05-29] MEDS: DEXTROSE 5% IN WATER 1,000 ML IV SCH (14:36)
--- NOTE | 2019-05-29 15:12 | Progress Note ---
Hospitalist Physical - Constitutional Vitals: Temp Pulse Resp BP Pulse Ox 98.4 F 66 18 131/73 99 05/29/19 07:37 05/29/19 10:00 05/29/19 10:00 05/29/19 07:37 05/29/19 10:00 General appearance: Present: no acute distress Results - Labs CBC & Chem 7: 05/29/19 04:58 05/27/19 03:34 Labs: Laboratory Last Values WBC 16.2 K/mm3 (4.5-11.0) H 05/29/19 04:58 RBC 3.30 M/mm3 (3.65-5.03) L 05/29/19 04:58 Hgb 9.4 gm/dl (11.8-15.2) L 05/29/19 04:58 Hct 28.4 % (35.5-45.6) L 05/29/19 04:58 MCV 86 fl (84-94) 05/29/19 04:58 MCH 28 pg (28-32) 05/29/19 04:58 MCHC 33 % (32-34) 05/29/19 04:58 RDW 14.0 % (13.2-15.2) 05/29/19 04:58 Plt Count 423 K/mm3 (140-440) 05/29/19 04:58 Lymph % (Auto) 6.8 % (13.4-35.0) L 05/21/19 22:56 [place] % (Auto) 10.9 % (0.0-7.3) H 05/21/19 22:56 Eos % (Auto) 9.2 % (0.0-4.3) H 05/21/19 22:56 Baso % (Auto) 1.1 % (0.0-1.8) 05/21/19 22:56 Lymph # 1.1 K/mm3 (1.2-5.4) L 05/21/19 22:56 [place] # 1.8 K/mm3 (0.0-0.8) H 05/21/19 22:56 Eos # 1.5 K/mm3 (0.0-0.4) H 05/21/19 22:56 Baso # 0.2 K/mm3 (0.0-0.1) H 05/21/19 22:56 Add Manual Diff Complete 05/25/19 09:28 Total Counted 100 05/25/19 09:28 Seg Neutrophils % 72.0 % (40.0-70.0) H 05/21/19 22:56 Seg Neuts % (Manual) 91.0 % (40.0-70.0) H 05/25/19 09:28 Band Neutrophils % 0 % 05/25/19 09:28 Lymphocytes % (Manual) 2.0 % (13.4-35.0) L 05/25/19 09:28 Reactive Lymphs % (Man) 0 % 05/25/19 09:28 Monocytes % (Manual) 3.0 % (0.0-7.3) 05/25/19 09:28 Eosinophils % (Manual) 4.0 % (0.0-4.3) 05/25/19 09:28 Basophils % (Manual) 0 % (0.0-1.8) 05/25/19 09:28 Metamyelocytes % 0 % 05/25/19 09:28 Myelocytes % 0 % 05/25/19 09:28 Promyelocytes % 0 % 05/25/19 09:28 Blast Cells % 0 % 05/25/19 09:28 Nucleated RBC % Not Reportable 05/25/19 09:28 Seg Neutrophils # 11.6 K/mm3 (1.8-7.7) H 05/21/19 22:56 Seg Neutrophils # Man 17.6 K/mm3 (1.8-7.7) H 05/25/19 09:28 Band Neutrophils # 0.0 K/mm3 05/25/19 09:28 Lymphocytes # (Manual) 0.4 K/mm3 (1.2-5.4) L 05/25/19 09:28 Abs React Lymphs (Man) 0.0 K/mm3 05/25/19 09:28 Monocytes # (Manual) 0.6 K/mm3 (0.0-0.8) 05/25/19 09:28 Eosinophils # (Manual) 0.8 K/mm3 (0.0-0.4) H 05/25/19 09:28 Basophils # (Manual) 0.0 K/mm3 (0.0-0.1) 05/25/19 09:28 Metamyelocytes # 0.0 K/mm3 05/25/19 09:28 Myelocytes # 0.0 K/mm3 05/25/19 09:28 Promyelocytes # 0.0 K/mm3 05/25/19 09:28 Blast Cells # 0.0 K/mm3 05/25/19 09:28 WBC Morphology Not Reportable 05/25/19 09:28 Hypersegmented Neuts Not Reportable 05/25/19 09:28 Hyposegmented Neuts Not Reportable 05/25/19 09:28 Hypogranular Neuts Not Reportable 05/25/19 09:28 Smudge Cells Not Reportable 05/25/19 09:28 Toxic Granulation Not Reportable 05/25/19 09:28 Toxic Vacuolation Not Reportable 05/25/19 09:28 Dohle Bodies Not Reportable 05/25/19 09:28 Pelger-Huet Anomaly Not Reportable 05/25/19 09:28 Laura Rods Not Reportable 05/25/19 09:28 Platelet Estimate Consistent w auto 05/25/19 09:28 Clumped Platelets Not Reportable 05/25/19 09:28 Plt Clumps, EDTA Not Reportable 05/25/19 09:28 Large Platelets Not Reportable 05/25/19 09:28 Giant Platelets Not Reportable 05/25/19 09:28 Platelet Satelliting Not Reportable 05/25/19 09:28 Plt Morphology Comment Not Reportable 05/25/19 09:28 RBC Morphology Not Reportable 05/25/19 09:28 Dimorphic RBCs Not Reportable 05/25/19 09:28 Polychromasia Few 05/25/19 09:28 Hypochromasia Not Reportable 05/25/19 09:28 Poikilocytosis Not Reportable 05/25/19 09:28 Anisocytosis Not Reportable 05/25/19 09:28 Microcytosis Not Reportable 05/25/19 09:28 Macrocytosis Not Reportable 05/25/19 09:28 Spherocytes Not Reportable 05/25/19 09:28 Pappenheimer Bodies Not Reportable 05/25/19 09:28 Sickle Cells Not Reportable 05/25/19 09:28 Target Cells Few 05/25/19 09:28 Tear Drop Cells Not Reportable 05/25/19 09:28 Ovalocytes Not Reportable 05/25/19 09:28 Helmet Cells Not Reportable 05/25/19 09:28 [place] Bodies Not Reportable 05/25/19 09:28 [place] Rings Not Reportable 05/25/19 09:28 [place] Cells Not Reportable 05/25/19 09:28 Bite Cells Not Reportable 05/25/19 09:28 Crenated Cell Not Reportable 05/25/19 09:28 Elliptocytes Not Reportable 05/25/19 09:28 Acanthocytes (Spur) Not Reportable 05/25/19 09:28 Rouleaux Not Reportable 05/25/19 09:28 Hemoglobin C Crystals Not Reportable 05/25/19 09:28 Schistocytes Not Reportable 05/25/19 09:28 Malaria parasites Not Reportable 05/25/19 09:28 Jv Bodies Not Reportable 05/25/19 09:28 Hem Pathologist Commnt No 05/25/19 09:28 Sodium 145 mmol/L (137-145) 05/27/19 03:34 Potassium 4.5 mmol/L (3.6-5.0) 05/27/19 03:34 Chloride 113.3 mmol/L (98-107) H 05/27/19 03:34 Carbon Dioxide 18 mmol/L (22-30) L 05/27/19 03:34 Anion Gap 18 mmol/L 05/27/19 03:34 BUN 23 mg/dL (9-20) H 05/27/19 03:34 Creatinine 1.8 mg/dL (0.8-1.5) H 05/27/19 03:34 Estimated GFR 44 ml/min 05/27/19 03:34 BUN/Creatinine Ratio 13 % 05/27/19 03:34 Glucose 110 mg/dL (75-100) H 05/27/19 03:34 POC Glucose 78 (70-105) 05/25/19 12:05 Lactic Acid 1.20 mmol/L (0.7-2.0) 05/22/19 09:24 Calcium 7.9 mg/dL (8.4-10.2) L 05/27/19 03:34 Total Bilirubin 0.20 mg/dL (0.1-1.2) 05/21/19 22:56 AST 15 units/L (5-40) 05/21/19 22:56 ALT 7 units/L (7-56) 05/21/19 22:56 Alkaline Phosphatase 69 units/L (35-129) 05/21/19 22:56 Troponin T 0.021 ng/mL (0.00-0.029) 05/21/19 22:56 Total Protein 6.9 g/dL (6.3-8.2) 05/21/19 22:56 Albumin 2.4 g/dL (3.9-5) L 05/21/19 22:56 Albumin/Globulin Ratio 0.5 % 05/21/19 22:56 Urine Color Yellow (Yellow) 05/21/19 Unknown Urine Turbidity Slightly-cloudy (Clear) 05/21/19 Unknown Urine pH 5.0 (5.0-7.0) 05/21/19 Unknown Ur Specific [place] 1.013 (1.003-1.030) 05/21/19 Unknown Urine Protein <15 mg/dl mg/dL (Negative) 05/21/19 Unknown Urine Glucose (UA) Neg mg/dL (Negative) 05/21/19 Unknown Urine Ketones Neg mg/dL (Negative) 05/21/19 Unknown Urine Blood Sm (Negative) 05/21/19 Unknown Urine Nitrite Neg (Negative) 05/21/19 Unknown Urine Bilirubin Neg (Negative) 05/21/19 Unknown Urine Urobilinogen < 2.0 mg/dL (<2.0) 05/21/19 Unknown Ur Leukocyte Esterase Sm (Negative) 05/21/19 Unknown Urine WBC (Auto) 19.0 /HPF (0.0-6.0) H 05/21/19 Unknown Urine RBC (Auto) 4.0 /HPF (0.0-6.0) 05/21/19 Unknown U Epithel Cells (Auto) < 1.0 /HPF (0-13.0) 05/21/19 Unknown Urine Bacteria (Auto) 1+ /HPF (Negative) 05/21/19 Unknown Hyaline Casts 1 /LPF 05/21/19 Unknown Urine Mucus Few /HPF 05/21/19 Unknown Influenza A (Rapid) Negative (Negative) 05/28/19 Unknown Influenza B (Rapid) Negative (Negative) 05/28/19 Unknown Blood Type O POSITIVE 05/22/19 02:30 Antibody Screen Negative 05/22/19 02:30 Active Medications - Current Medications Current Medications: Generic Name Dose Route Start Last Admin Trade Name Freq PRN Reason Stop Dose Admin Acetaminophen 650 mg 05/22/19 00:43 05/26/19 20:48 Tylenol PO 650 mg Q4H PRN Administration Pain MILD(1-3)/Fever >100.5/FERNANDES Diphenhydramine HCl 25 mg 05/22/19 18:44 05/28/19 23:38 Benadryl PO 25 mg Q6H PRN Administration Itching Heparin Sodium (Porcine) 5,000 unit 05/22/19 10:00 05/29/19 09:39 Heparin SUB-Q 5,000 unit Q12HR LILI Administration Dextrose 1,000 mls @ 75 mls/hr 05/24/19 09:00 05/29/19 14:36 D5w IV 75 mls/hr DIRECT LILI Administration Metronidazole 500 mg in 100 mls @ 100 mls/hr 05/27/19 14:00 05/29/19 13:25 Flagyl 500 Mg/100 Ml IV 100 mls/hr Q8HR LILI Administration Protocol Cefazolin Sodium 2 gm/ Sodium 100 mls @ 200 mls/hr 05/28/19 22:00 05/29/19 09:38 Chloride IV 200 mls/hr Q12HR LILI Administration Ondansetron HCl 4 mg 05/22/19 00:43 05/24/19 12:21 Zofran IV 4 mg Q8H PRN Administration Nausea And Vomiting Sodium Chloride 10 ml 05/22/19 10:00 05/29/19 09:39 Sodium Chloride Flush Syringe 10 Ml IV 10 ml BID LILI Administration Sodium Chloride 10 ml 05/22/19 00:43 Sodium Chloride Flush Syringe 10 Ml IV PRN PRN LINE FLUSH Triamcinolone Acetonide 1 applic 05/24/19 22:00 05/29/19 09:39 Kenalog TP 1 applic BID LILI Administration Nutrition/Malnutrition Assess - Dietary Evaluation Nutrition/Malnutrition Findings: Nutrition Notes Start: 05/22/19 11:12 Freq: Status: Active Protocol: Document 05/27/19 12:04 CW (Rec: 05/27/19 12:17 CW [id number]) Co-Sign 05/27/19 12:04 LP Nutrition Notes Initial or Follow up Reassessment Current Diagnosis CKD(stage I-IV),Sepsis, Hypertension,Stroke Other Pertinent Diagnosis AMS, dementia, Acute Metabolic Encephalopathy, wounds Current Diet Regular Pureed Diet Labs/Tests BUN 23 Cr 1.8 BG 110 Pertinent Medications D5w at 75 ml/hr Height 5 ft 6 in Weight 71.3 kg Usual Body Weight 65.771 kg [place] Body Weight (kg) 64.54 BMI 25.3 Intake Prior to Admission Good Weight Status Overweight Subjective/Other Information F/U PO/ONS need. Diet advanced to pureed with thin liquids via [employer]. Pt denied offer for Saurabh supplement. Per RN notes , pt had an instance of vomiting. Pt states that he is tolerating pureed diet. Per charts pt ate 100 % meals yesterday and 50% breakfast today. Percent of energy/protein needs met: 100%/100% Burn Absent Trauma Absent GI Symptoms None Food Allergy No Current % PO Good (75-100%) Minimum of two criteria No Body Fat Depletion Mild depletion (non-severe) #1 Nutrition Diagnosis Increased nutrient needs ( specify in comment below) Comments: Protein Diagnosis Progress(for reassessment Continues documentation) Is patient on ventilator? No Is Patient Ambulatory and/or Out of Bed No [facility] [phone] Calculation Used for Recommendations [facility] Additional Notes Protein needs: 62-117 g/day (0 .8-1.5 g/kg/day) CKD and wound healing Fluid needs: 1 ml/kcal or per MD Nutrition Intervention Change Diet Order: Continue Pureed diet with thin liquids Goal #1 Continue to meet at least 75% of energy and protein needs Anticipated Discharge Needs: Pureed Diet Follow-Up By: 06/01/19 Additional Comments F/U for stable PO intakes
--- NOTE | 2019-05-29 17:46 | Discharge Summary ---
Providers - Providers Date of Admission: 05/22/19 04:00 Date of discharge: 05/29/19 Attending physician: JODIE BAHENA 05/22/19 04:18 Consult to Wound/ET Nurse [CONS] Routine Reason For Exam: wound eval excoriation back, sides, scrotum, groin 05/24/19 12:05 Physical Therapy Evaluation and Treat [CONS] Routine Comment: Reason For Exam: weakness 05/24/19 13:56 Speech Therapy Evaluation and Treat [CONS] Routine Reason For Exam: SWALLOWING EVALUATION 05/26/19 12:12 Consult to Physician [CONS] Routine Comment: Consulting Provider: ARCHIE CUNHA Physician Instructions: Reason For Exam: Sepsis, cellulitis buttocks, UTI [facility] Hospitalization Condition: Fair Disposition: DC-01 TO HOME OR SELFCARE Exam - Constitutional Vitals: Temp Pulse Resp BP Pulse Ox 98.5 F 73 18 132/68 96 05/29/19 12:41 05/29/19 12:41 05/29/19 12:41 05/29/19 12:41 05/29/19 12:41 Plan Activity: advance as tolerated Diet: other (Pureed diet) Plan of Treatment: 1.Follow up with PCP in 1 week. 2.Continue with home hospice Follow up with: SKYLAR ROSE MD [Primary Care Provider] - 7 Days Prescriptions: cefUROXime [Ceftin] 500 mg PO Q12H 3 Days tablet metroNIDAZOLE [Flagyl] 500 mg PO Q8HR #10 tablet Triamcinolone 0.1% [Kenalog 0.1% CREAM] 1 applic TP BID #1 tube
[2019-05-29] MEDS ORDERED: LEVETIRACETAM 250 MG PO SCH (18:00)
[2019-05-29] MEDS ORDERED: levETIRAcetam 500 MG TAB PO SCH (22:00)
[2019-05-30] MEDS: metroNIDAZOLE/NS 500 MG/100 ML 500 MG/100 ML BAG IV SCH (05:03)
[2019-05-30 05:17] LABS: Hematocrit 32.7 % (35.5-45.6); Hemoglobin 10.7 gm/dl (11.8-15.2); Mean Corpuscular HGB Conc 33 % (32-34); Mean Corpuscular Volume 87 fl (84-94); Platelet Count 435 K/mm3 (140-440); Red Blood Count 3.76 M/mm3 (3.65-5.03); Red Cell Distribution Width 14.2 % (13.2-15.2)
[2019-05-30 07:43] VITALS: BP 140/76
== END 2019-05-30 08:50 | disposition hospice, home (50) | DRG 871 ==
LOC: ED 22:22 → 2B-ACE 05-22 04:00
PROVIDERS: ADMIT Internal Medicine Geriatric Medicine; ATTEND Internal Medicine
DX: A41.9 Sepsis, unspecified organism (principal); G92 Toxic encephalopathy; E87.0 Hyperosmolality and hypernatremia; L03.317 Cellulitis of buttock; N30.01 Acute cystitis with hematuria; N17.9 Acute kidney failure, unspecified; I12.9 Hypertensive chronic kidney disease with stage 1 through stage 4 chronic kidney disease, or unspecified chronic kidney disease; N18.9 Chronic kidney disease, unspecified; F03.90 Unspecified dementia, unspecified severity, without behavioral disturbance, psychotic disturbance, mood disturbance, and anxiety; R82.81 Pyuria; Z86.73 Personal history of transient ischemic attack (TIA), and cerebral infarction without residual deficits; Z79.82 Long term (current) use of aspirin; Z79.899 Other long term (current) drug therapy
CPT/HCPCS: 36415; 71045; 80048; 80053; 81001; 82140; 82962; 84484; 85007; 85025; 85027; 86850; 86900; 86901; 87040; 87086; 87116; 87400; 93005; 93010; 93970; 96365; 96366; 96368; G0378; J0295; J0690; J0692; J1644; J2405; J3370; J7030; J7040; J7070